=== PATIENT | female | born 1955 | race Caucasian/White ===

== ENCOUNTER → 2016-06-02 | Outpatient (CLI) | payer BC ==
[2016-06-02 13:13] LABS: CHLORIDE,CL 105 mmol/L (98-110)
[2016-06-02 13:59] LABS: SODIUM,NA 136 mmol/L (136-146)
== END ==
LOC: MW.CHNEURO 12:27
PROVIDERS: ATTEND Psychiatry & Neurology Neuromuscular Medicine
DX: G31.84 Mild cognitive impairment of uncertain or unknown etiology (principal)
CPT/HCPCS: 36415; 80053; 82607; 84443; 85025

== ENCOUNTER → 2016-06-03 | Outpatient (CLI) | payer BC | END | disposition home or self-care (01) | LOC: MW.CHNEURO 07:31 | PROVIDERS: ATTEND Psychiatry & Neurology Neuromuscular Medicine | DX: G31.84 Mild cognitive impairment of uncertain or unknown etiology (principal) | CPT/HCPCS: 36415; 83921 ==

== ENCOUNTER → 2016-06-05 | Outpatient (CLI) | payer BC ==
--- NOTE | 2016-06-05 16:14 | MR ---
EXAMINATION: MRI of the brain with and without contrast. TECHNIQUE: Multiplanar and multisequence imaging of the brain without and following the administrati on of 17 mL of MultiHance. HISTORY: Cognitive impairment. FINDINGS: Cerebral hemispheres and the deep nuclei are without hemorrhage, mass, edema, enhancement or atrophy . Small nonspecific multifocal periventricular and subcortical white matter FLAIR intensities are n oted. No extraaxial collections or hemorrhage. The ventricular system is of normal size and config uration without hydrocephalus. No abnormal diffusion restriction. Brainstem and cerebellum are without hemorrhage, mass, edema, gliosis, enhancement or atrophy. The carotid basilar artery flow voids are intact. The otomastoid airspaces are clear. No internal edy tory canal or cerebellopontine angle masses or enhancement. Paranasal sinuses are clear. Globes, optic nerves, orbital apices, optic chiasm, optic tracts, and visual cortices are unremarkable. Pituitary and sella turcica are unremarkable. No meningeal enhancement. The craniocervical junctio n is unremarkable. No siderosis or evidence of vascular malformation. The calvarium is intact. IMPRESSION: 1. Multiple nonspecific periventricular and subcortical white matter FLAIR signal intensities. These likely represent small vessel ischemic changes, related clinically. 2. Otherwise no acute intracranial findings.
== END ==
LOC: MW.MRI 10:13
PROVIDERS: ATTEND Psychiatry & Neurology Neuromuscular Medicine
DX: G31.84 Mild cognitive impairment of uncertain or unknown etiology (principal)
CPT/HCPCS: 70553; 70553-26

== ENCOUNTER → 2016-06-08 | Outpatient (CLI) | payer BC ==
[2016-06-08 12:49] LABS: CHLORIDE,CL 104 mmol/L (98-110); SODIUM,NA 139 mmol/L (136-146)
--- NOTE | 2016-06-10 11:53 | CR ---
EXAM DATE: 06/08/16 PATIENT'S AGE: 60 Patient: FACUNDO LUEVANO Facility: [place], [place] Site . Site : 1955 Study: XRay Extremity [id number] 2:16:51 PM Ordering Physician: Salvatore Monroy Final Report: HISTORY: Right hip pain. Findings: AP and frogleg views of the right hip demonstrates maintenance of the right hip joint space. No spurring is seen. No subchondral abnormality, fracture or dislocation is seen. Right-sided pelvic phleboliths are present. Impression: No bony abnormality within the right hip. Dictated by Jyoti Grey MD @ Jun 09 2016 10:16PM (Electronic Signature) Report Signed by Proxy and Original Signed Document filed in the Medical Record. MTDD
== END ==
LOC: MW.CHFP 12:08
PROVIDERS: ATTEND Nurse Practitioner Family
DX: M25.551 Pain in right hip (principal); E11.9 Type 2 diabetes mellitus without complications; Z79.4 Long term (current) use of insulin
CPT/HCPCS: 36415; 73502-26-RT; 73502-RT; 80053; 80061; 83036

== ENCOUNTER 2017-09-05 04:00 | Emergency (ER) | payer BC ==
--- NOTE | 2017-09-05 04:16 | EDM.PDOC ---
ED HPI GENERAL MEDICAL PROBLEM - General Stated Complaint: BLADDER INFECTION Time Seen by Provider: 09/05/17 04:15 Source of Information: Reports: Patient History Limitations: Reports: No Limitations - History of Present Illness INITIAL COMMENTS - FREE TEXT/NARRATIVE: HISTORY AND PHYSICAL: History of present illness: 61-year-old female presenting to the emergency department chief complaint of dysuria 1 day. Patient states that yesterday she began to have some dysuria as well as urgency. She suspects this is a urinary tract infection and has had similar in the past. Does state that she just finished a course of Augmentin for bronchitis /sinusitis/otitis media this last Wednesday. She denies any associated fever, chills, nausea, vomiting, flank pain, history of kidney stones, abdominal pain, or other signs of systemic infection. She currently denies any chest pain, palpitations, shortness of breath, syncopal episodes, or focal neurologic deficits. Review of systems: As per history of present illness and below otherwise all systems reviewed and negative. Past medical history: As per history of present illness and as reviewed below otherwise noncontributory. Surgical history: As per history of present illness and as reviewed below otherwise noncontributory. Social history: No reported history of drug or alcohol abuse. Family history: As per history of present illness and as reviewed below otherwise noncontributory. Physical exam: HEENT: Atraumatic, normocephalic, pupils reactive, negative for conjunctival pallor or scleral icterus, mucous membranes moist, throat clear, neck supple, nontender, trachea midline. Lungs: Clear to auscultation, breath sounds equal bilaterally, chest nontender. Heart: S1S2, regular, negative for clicks, rubs, or JVD. Abdomen: Soft, nondistended, nontender. Negative for masses or hepatosplenomegaly. Negative for costovertebral tenderness. Pelvis: Stable nontender. Genitourinary: Deferred. Rectal: Deferred. Extremities: Atraumatic, negative for cords or calf pain. Neurovascular unremarkable. Neuro: Awake, alert, oriented. Cranial nerves II through XII unremarkable. Cerebellum unremarkable. Motor and sensory unremarkable throughout. Exam nonfocal. Diagnostics: UA/UC Therapeutics: Ciprofloxacin 500 mg by mouth twice a day Impression: Acute cystitis Plan: Urinalysis was positive for acute cystitis. Patient was given 1 dose of ciprofloxacin as well as a prescription for ciprofloxacin 500 mg by mouth twice a day. I did use Cipro secondary to the patient's recent use of Augmentin. She is going to follow-up with her primary care provider early next week and I also instructed her to return to emergency department if she had any new or worsening symptoms. Definitive disposition and diagnosis as appropriate pending reevaluation and review of above. lower abdomen Pain Score (Numeric/FACES): 4 - Related Data Allergies Allergy/AdvReac Type Severity Reaction Status Date / Time metronidazole Allergy Hives Verified 09/05/17 04:28 Sulfa (Sulfonamide Allergy Hives Verified 09/05/17 04:28 Antibiotics) Home Meds: Home Meds Aspirin [Divina Chewable Aspirin] 81 mg PO DAILY 10/28/13 [History] Gemfibrozil 600 mg PO BIDMEALS 10/28/13 [History] Sargeant Carbonate [Sargeant Carbonate ER] 150 mg PO TID 10/28/13 [History] Propranolol [Inderal LA] 160 mg PO BEDTIME 10/28/13 [History] QUEtiapine [SEROquel] 300 mg PO BEDTIME 10/28/13 [History] Levothyroxine 112 mcg PO ACBREAKFAST 05/18/14 [History] Losartan [Cozaar] 100 mg PO BEDTIME 05/21/14 [History] Rosuvastatin [Crestor] 10 mg PO BEDTIME 05/21/14 [History] buPROPion [Wellbutrin XL] 150 mg PO DAILY 05/21/14 [History] Methylphenidate HCl [Ritalin] 20 mg PO BID 12/07/14 [History] Subcutaneous Insulin Pump [Insulin Pump] 1 dose SQ ASDIRECTED 12/07/14 [History] Desvenlafaxine Succinate [Pristiq ER] 100 mg PO DAILY 10/15/15 [History] Methylphenidate HCl [Ritalin LA] 20 mg PO BID 10/15/15 [History] Vilazodone [Viibryd] 20 mg PO DAILY 10/15/15 [History] Amitriptyline [Elavil] 1 tab PO DAILY 09/05/17 [History] Gabapentin [Neurontin] 1 cap PO TID 09/05/17 [History] cloNIDine [Catapres] 1 tab PO BID 09/05/17 [History] Past Medical History Cardiovascular History: Reports: High Cholesterol, Hypertension Other Cardiovascular History: Hypertriglyceridemia Other Gastrointestinal History: Colitis, Elevated liver enzymes Genitourinary History: Reports: UTI, Recurrent Other Genitourinary History: Chronic UTI's in recent past hx: Now been clear for a year 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 History: Laproscopy Musculoskeletal History: Reports: Other (See Below) Other Musculoskeletal History: hx: fracturing couple toes Neurological History: Reports: None Psychiatric History: Reports: ADD, Depression Endocrine/Metabolic History: Reports: Diabetes, Type II, Hypothyroidism Other Endocrine/Metabolic History: Hypothyroidism, Insulin dependent diabetes- Insulin Pump - Infectious Disease History Infectious Disease History: Reports: Chicken Pox, Mumps, Shingles - Past Surgical History HEENT Surgical History: Reports: Tonsillectomy GI Surgical History: Reports: Cholecystectomy Social & Family History - Family History Family Medical History: Noncontributory ED ROS GENERAL - Review of Systems Review Of Systems: ROS reveals no pertinent complaints other than HPI. ED EXAM, GENERAL - Physical Exam Exam: See Below Course - Vital Signs Last Recorded V/S: Last Vital Signs Temp 97 F 09/05/17 04:00 Pulse 73 09/05/17 04:00 Resp 18 09/05/17 04:00 BP 145/54 H 09/05/17 04:00 Pulse Ox 95 09/05/17 04:00 - Orders/Labs/Meds Orders: Active Orders 24 hr Category Date Time Status CULTURE URINE [RM] Stat Lab 09/05/17 04:25 Received UA W/MICROSCOPIC [URIN] Stat Lab 09/05/17 04:25 Ordered Labs: Laboratory Tests 09/05/17 Range/Units 04:25 Urine Color YELLOW Urine Appearance HAZY Urine pH 6.0 (5.0-8.0) Ur Specific [place] 1.010 (1.001-1.035) Urine Protein 100 (NEGATIVE) mg/dL Urine Glucose (UA) >=1000 (NEGATIVE) mg/dL Urine Ketones NEGATIVE (NEGATIVE) mg/dL Urine Occult Blood LARGE H (NEGATIVE) Urine Nitrite POSITIVE H (NEGATIVE) Urine Bilirubin NEGATIVE (NEGATIVE) Urine Urobilinogen 2.0 H (<2.0) EU/dL Ur Leukocyte Esterase SMALL (NEGATIVE) Urine RBC 15-20 (0-2/HPF) Urine WBC TO NUMEROUS TO COUNT H (0-5/HPF) Ur Epithelial Cells FEW (NONE-FEW) Urine Bacteria 2+ H (NEGATIVE) Meds: Medications Discontinued Medications Generic Name Dose Route Start Last Admin Trade Name Ruben PRN Reason Stop Dose Admin Ciprofloxacin 500 mg 09/05/17 05:37 Ciprofloxacin Hcl PO 09/05/17 05:38 ONETIME ONE Departure - Departure Time of Disposition: 05:55 Disposition: Home, Self-Care 01 Condition: Good Clinical Impression: Acute cystitis Qualifiers: Hematuria presence: without hematuria Qualified Code(s): N30.00 - Acute cystitis without hematuria - Discharge Information Additional Instructions: My general discharge The following information is given to patients seen in the emergency department who are being discharged to home. This information is to outline your options for follow-up care. We provide all patients seen in our emergency department with a follow-up referral. The need for follow-up, as well as the timing and circumstances, are variable depending upon the specifics of your emergency department visit. If you don't have a primary care physician on staff, we will provide you with a referral. We always advise you to contact your personal physician following an emergency department visit to inform them of the circumstance of the visit and for follow-up with them and/or the need for any referrals to a consulting specialist. The emergency department will also refer you to a specialist when appropriate. This referral assures that you have the opportunity for follow-up care with a specialist. All of these measure are taken in an effort to provide you with optimal care, which includes your follow-up. Under all circumstances we always encourage you to contact your private physician who remains a resource for coordinating your care. When calling for follow-up care, please make the office aware that this follow-up is from your recent emergency room visit. If for any reason you are refused follow-up, please contact the [facility] Emergency Department at and asked to speak to the emergency department charge nurse. [facility] [address] [place] [phone] Please follow-up with a primary care provider as we discussed. Take antibiotics as prescribed. He should watch out for symptoms and side effects of medication that we discussed. Return emergency department if any new or worsening symptoms. - My Orders Last 24 Hours: My Active Orders 09/05/17 04:25 CULTURE URINE [RM] Stat UA W/MICROSCOPIC [URIN] Stat - Assessment/Plan Last 24 Hours: My Active Orders 09/05/17 04:25 CULTURE URINE [RM] Stat UA W/MICROSCOPIC [URIN] Stat
[2017-09-05] MEDS ORDERED: Ciprofloxacin 500 MG Tab PO ONE (05:37)
[2017-09-05 05:56] VITALS: BP 110/54
== END 2017-09-05 06:05 | disposition home or self-care (01) ==
LOC: MW.ED 04:00
DX: N30.00 Acute cystitis without hematuria (principal); I10 Essential (primary) hypertension; E11.9 Type 2 diabetes mellitus without complications; Z79.899 Other long term (current) drug therapy; Z79.82 Long term (current) use of aspirin; Z88.8 Allergy status to other drugs, medicaments and biological substances; Z88.2 Allergy status to sulfonamides
CPT/HCPCS: 81001; 87086; 87088; 87186; 99283; A9270

== ENCOUNTER 2018-04-29 09:50 | Emergency (ER) | payer BC ==
[2018-04-29] MEDS ORDERED: Ondansetron 4 MG/2 ML SDV IVPUSH ONE (10:16)
[2018-04-29] MEDS ORDERED: Sodium Chloride 0.9% 10 ML SDV IV STA (10:16)
[2018-04-29] MEDS ORDERED: Ondansetron 4 MG/2 ML SDV ONE (10:17)
[2018-04-29] MEDS ORDERED: Sodium Chloride 0.9% 10 ML Syringe FLUSH PRN (10:18)
[2018-04-29] MEDS ORDERED: Sodium Chloride 0.9% 2.5 ML Syringe FLUSH PRN (10:18)
--- NOTE | 2018-04-29 10:40 | EDM.PDOC ---
ED HPI GENERAL MEDICAL PROBLEM - General Chief Complaint: Abdominal Pain Stated Complaint: AMB Time Seen by Provider: 04/29/18 10:17 Source of Information: Reports: Patient History Limitations: Reports: No Limitations - History of Present Illness INITIAL COMMENTS - FREE TEXT/NARRATIVE: History of present illness: []Started having right sided upper abdominal pain last night at 1 AM with frequent nonbloody emesis and mild shortness of breath. She woke up with severe chills alternating with sweats. Patient denies any diarrhea or difficulty urinating. She has a history of UTIs and states this does not feel like one. Review of systems: As per history of present illness and below otherwise all systems reviewed and negative. Past medical history: As per history of present illness and as reviewed below otherwise noncontributory. Surgical history: As per history of present illness and as reviewed below otherwise noncontributory. Social history: No reported history of drug or alcohol abuse. Family history: As per history of present illness and as reviewed below otherwise noncontributory. Physical exam: General: Well developed, well nourished in NAD HEENT: Atraumatic, normocephalic, pupils reactive, negative for conjunctival pallor or scleral icterus, mucous membranes moist, throat clear, neck supple, nontender, trachea midline. Lungs: Clear to auscultation, breath sounds equal bilaterally, chest nontender. Heart: S1S2, regular, negative for clicks, rubs, or JVD. Abdomen: NABS, Soft, nondistended, nontender. Negative for masses or hepatosplenomegaly. Negative for costovertebral tenderness. Pelvis: Stable nontender. Genitourinary: Deferred. Rectal: Deferred. Extremities: Atraumatic, negative for cords or calf pain. Neurovascular unremarkable. Neuro: Awake, alert, oriented. Cranial nerves II through XII unremarkable. Cerebellum unremarkable. Motor and sensory unremarkable throughout. Exam nonfocal. Skin:warm and dry Diagnostics: Blood cultures, CBC, CMP, UA, lactic acid Therapeutics: Zofran, ceftriaxone, Toradol ED Course: Stable Impression: UTI Prescriptions: Nitrofurantoin Plan: Follow up with primary care Definitive disposition and diagnosis as appropriate pending reevaluation and review of above. Right Abdominal Pain Score (Numeric/FACES): 7 - Related Data Allergies Allergy/AdvReac Type Severity Reaction Status Date / Time codeine Allergy skin crawls Verified 04/29/18 10:03 metronidazole Allergy Hives Verified 04/29/18 10:03 Sulfa (Sulfonamide Allergy Hives Verified 04/29/18 10:03 Antibiotics) Home Meds: Home Meds Aspirin [Divina Chewable Aspirin] 81 mg PO DAILY 10/28/13 [History] Gemfibrozil 600 mg PO BIDMEALS 10/28/13 [History] Kelly Carbonate [Kelly Carbonate ER] 3 tab PO DAILY 10/28/13 [History] Propranolol [Inderal LA] 160 mg PO BEDTIME 10/28/13 [History] QUEtiapine [SEROquel] 300 mg PO BEDTIME 10/28/13 [History] Levothyroxine 112 mcg PO ACBREAKFAST 05/18/14 [History] Losartan [Cozaar] 100 mg PO BEDTIME 05/21/14 [History] Methylphenidate HCl [Ritalin LA] 2 tab PO DAILY 10/15/15 [History] Amitriptyline [Elavil] 1 tab PO BEDTIME 09/05/17 [History] Gabapentin [Neurontin] 1 cap PO TID 09/05/17 [History] cloNIDine [Catapres] 2 tab PO BEDTIME 09/05/17 [History] Fiasp 200 units SUBCUT ASDIRECTED 01/19/18 [History] Ozempic 0.25 mg SUBCUT WEEKLY 01/19/18 [History] rOPINIRole HCl [Requip] 1 mg PO BEDTIME 01/19/18 [History] Nitrofurantoin Macrocrystal [Macrodantin] 100 mg PO BID #14 capsule 04/29/18 [Rx ] Past Medical History HEENT History: Reports: Other (See Below) Other HEENT History: wears glasses Cardiovascular History: Reports: High Cholesterol, Hypertension Other Cardiovascular History: Hypertriglyceridemia Respiratory History: Reports: None Gastrointestinal History: Reports: GERD, Irritable Bowel Syndrome, Other (See Below) Other Gastrointestinal History: Colitis, Elevated liver enzymes Genitourinary History: Reports: UTI, Recurrent Other Genitourinary History: Chronic UTI's in recent past hx: Now been clear for a year 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 Musculoskeletal History: Reports: Other (See Below) Other Musculoskeletal History: hx: fracturing couple toes Neurological History: Reports: Neuropathy, Peripheral, Other (See Below) Other Neuro History: dementia Psychiatric History: Reports: ADHD, Anxiety, Depression, PTSD, Suicide Attempt Endocrine/Metabolic History: Reports: Diabetes, Type II, Hypothyroidism Other Endocrine/Metabolic History: Hypothyroidism, Insulin dependent diabetes- Insulin Pump Hematologic History: Reports: None Immunologic History: Reports: None Oncologic (Cancer) History: Reports: None Dermatologic History: Reports: None - Infectious Disease History Infectious Disease History: Reports: Chicken Pox, Mumps, TB - Past Surgical History Head Surgeries/Procedures: Reports: None HEENT Surgical History: Reports: Tonsillectomy GI Surgical History: Reports: Cholecystectomy Social & Family History - Family History Family Medical History: Noncontributory - Tobacco Use Smoking Status *Q: Never Smoker - Caffeine Use Caffeine Use: Reports: None - Recreational Drug Use Recreational Drug Use: No ED ROS GENERAL - Review of Systems Review Of Systems: ROS reveals no pertinent complaints other than HPI. ED EXAM, GI/ABD - Physical Exam Exam: See Below (See history of present illness) Course - Vital Signs Last Recorded V/S: Last Vital Signs Temp 100 F 04/29/18 10:07 Pulse 108 H 04/29/18 10:07 Resp 20 04/29/18 10:07 BP 163/68 H 04/29/18 10:07 Pulse Ox 94 L 04/29/18 10:07 - Orders/Labs/Meds Orders: Active Orders 24 hr Category Date Time Status EKG 12 Lead [EKG Documentation Completion] [RC] STAT Care 04/29/18 11:02 Active CULTURE BLOOD [BC] Stat Lab 04/29/18 11:33 Received CULTURE BLOOD [BC] Stat Lab 04/29/18 11:42 Received CULTURE URINE [RM] Routine Lab 04/29/18 11:06 Received Sodium Chloride 0.9% [Saline Flush] Med 04/29/18 10:18 Active 10 ml FLUSH ASDIRECTED PRN Sodium Chloride 0.9% [Saline Flush] Med 04/29/18 10:18 Active 2.5 ml FLUSH ASDIRECTED PRN cefTRIAXone [Rocephin in Dextrose,Iso-Osm 1 GM/50 ML] 1 Med 04/29/18 11:55 Active gm Premix Bag 1 bag IV ONETIME Blood Culture x2 Reflex Set [OM.PC] Stat Oth 04/29/18 11:25 Ordered Saline Lock Insert [OM.PC] Stat Oth 04/29/18 10:18 Ordered Medication Orders Ceftriaxone Sodium/Dextrose 1 (gm/ Premix) 50 mls @ 100 mls/hr IV ONETIME ONE Stop: 04/29/18 12:24 Last Admin: 04/29/18 12:12 Dose: 100 mls/hr Sodium Chloride (Saline Flush) 10 ml FLUSH ASDIRECTED PRN PRN Reason: Keep Vein Open Sodium Chloride (Saline Flush) 2.5 ml FLUSH ASDIRECTED PRN PRN Reason: Keep Vein Open Labs: Laboratory Tests 04/29/18 04/29/18 04/29/18 Range/Units 10:08 10:08 11:06 WBC 10.15 (4.0-11.0) K/uL RBC 4.60 (4.30-5.90) M/uL Hgb 13.5 (12.0-16.0) g/dL Hct 39.9 (36.0-46.0) % MCV 86.7 (80.0-98.0) fL MCH 29.3 (27.0-32.0) pg MCHC 33.8 (31.0-37.0) g/dL RDW Std Deviation 45.4 (28.0-62.0) fl RDW Coeff of Bailey 15 (11.0-15.0) % Plt Count 167 (150-400) K/uL MPV 10.00 (7.40-12.00) fL Neut % (Auto) 90.2 H (48.0-80.0) % Lymph % (Auto) 6.3 L (16.0-40.0) % [place] % (Auto) 3.2 (0.0-15.0) % Eos % (Auto) 0.1 (0.0-7.0) % Baso % (Auto) 0.2 (0.0-1.5) % Neut # (Auto) 9.2 H (1.4-5.7) K/uL Lymph # (Auto) 0.6 (0.6-2.4) K/uL [place] # (Auto) 0.3 (0.0-0.8) K/uL Eos # (Auto) 0.0 (0.0-0.7) K/uL Baso # (Auto) 0.0 (0.0-0.1) K/uL Nucleated RBC % 0.0 /100WBC Nucleated RBCs # 0 K/uL Lactate (0.20-2.00) mmol/L Sodium 137 (136-145) mmol/L Potassium 4.3 (3.5-5.1) mmol/L Chloride 102 (98-107) mmol/L Carbon Dioxide 15.8 L (21.0-32.0) mmol/L BUN 25 H (7.0-18.0) mg/dL Creatinine 1.9 H (0.6-1.0) mg/dL Est Cr Clr Drug Dosing 28.74 mL/min Estimated GFR (MDRD) 26.8 ml/min Glucose 387 H (74-106) mg/dL Calcium 9.4 (8.5-10.1) mg/dL Total Bilirubin 0.4 (0.2-1.0) mg/dL AST 19 (15-37) IU/L ALT 36 (14-63) IU/L Alkaline Phosphatase 60 (46-116) U/L Total Protein 7.8 (6.4-8.2) g/dL Albumin 3.7 (3.4-5.0) g/dL Globulin 4.1 H (2.6-4.0) g/dL Albumin/Globulin Ratio 0.9 (0.9-1.6) Urine Color YELLOW Urine Appearance CLEAR Urine pH 6.0 (5.0-8.0) Ur Specific [place] 1.015 (1.001-1.035) Urine Protein NEGATIVE (NEGATIVE) mg/dL Urine Glucose (UA) 500 H (NEGATIVE) mg/dL Urine Ketones NEGATIVE (NEGATIVE) mg/dL Urine Occult Blood SMALL H (NEGATIVE) Urine Nitrite POSITIVE H (NEGATIVE) Urine Bilirubin NEGATIVE (NEGATIVE) Urine Urobilinogen 0.2 (<2.0) EU/dL Ur Leukocyte Esterase NEGATIVE (NEGATIVE) Urine RBC 1-2 (0-2/HPF) Urine WBC 0-1 (0-5/HPF) Ur Epithelial Cells MODERATE (NONE-FEW) Urine Bacteria RARE (NEGATIVE) 04/29/18 Range/Units 11:33 WBC (4.0-11.0) K/uL RBC (4.30-5.90) M/uL Hgb (12.0-16.0) g/dL Hct (36.0-46.0) % MCV (80.0-98.0) fL MCH (27.0-32.0) pg MCHC (31.0-37.0) g/dL RDW Std Deviation (28.0-62.0) fl RDW Coeff of Bailey (11.0-15.0) % Plt Count (150-400) K/uL MPV (7.40-12.00) fL Neut % (Auto) (48.0-80.0) % Lymph % (Auto) (16.0-40.0) % [place] % (Auto) (0.0-15.0) % Eos % (Auto) (0.0-7.0) % Baso % (Auto) (0.0-1.5) % Neut # (Auto) (1.4-5.7) K/uL Lymph # (Auto) (0.6-2.4) K/uL [place] # (Auto) (0.0-0.8) K/uL Eos # (Auto) (0.0-0.7) K/uL Baso # (Auto) (0.0-0.1) K/uL Nucleated RBC % /100WBC Nucleated RBCs # K/uL Lactate 3.6 H (0.20-2.00) mmol/L Sodium (136-145) mmol/L Potassium (3.5-5.1) mmol/L Chloride (98-107) mmol/L Carbon Dioxide (21.0-32.0) mmol/L BUN (7.0-18.0) mg/dL Creatinine (0.6-1.0) mg/dL Est Cr Clr Drug Dosing mL/min Estimated GFR (MDRD) ml/min Glucose (74-106) mg/dL Calcium (8.5-10.1) mg/dL Total Bilirubin (0.2-1.0) mg/dL AST (15-37) IU/L ALT (14-63) IU/L Alkaline Phosphatase (46-116) U/L Total Protein (6.4-8.2) g/dL Albumin (3.4-5.0) g/dL Globulin (2.6-4.0) g/dL Albumin/Globulin Ratio (0.9-1.6) Urine Color Urine Appearance Urine pH (5.0-8.0) Ur Specific [place] (1.001-1.035) Urine Protein (NEGATIVE) mg/dL Urine Glucose (UA) (NEGATIVE) mg/dL Urine Ketones (NEGATIVE) mg/dL Urine Occult Blood (NEGATIVE) Urine Nitrite (NEGATIVE) Urine Bilirubin (NEGATIVE) Urine Urobilinogen (<2.0) EU/dL Ur Leukocyte Esterase (NEGATIVE) Urine RBC (0-2/HPF) Urine WBC (0-5/HPF) Ur Epithelial Cells (NONE-FEW) Urine Bacteria (NEGATIVE) Meds: Medications Generic Name Dose Route Start Last Admin Trade Name Freq PRN Reason Stop Dose Admin Ceftriaxone Sodium/Dextrose 1 50 mls @ 100 mls/hr 04/29/18 11:55 04/29/18 12: 12 gm/ Premix IV 04/29/18 12:24 100 mls/hr ONETIME ONE Administration Sodium Chloride 10 ml 04/29/18 10:18 Saline Flush FLUSH ASDIRECTED PRN Keep Vein Open Sodium Chloride 2.5 ml 04/29/18 10:18 Saline Flush FLUSH ASDIRECTED PRN Keep Vein Open Discontinued Medications Generic Name Dose Route Start Last Admin Trade Name Freq PRN Reason Stop Dose Admin Ketorolac Tromethamine 30 mg 04/29/18 10:56 04/29/18 11:00 Toradol IVPUSH 04/29/18 10:57 30 mg ONETIME ONE Administration Ondansetron HCl 4 mg 04/29/18 10:16 04/29/18 10:23 Zofran IVPUSH 04/29/18 10:17 4 mg ONETIME ONE Administration Ondansetron HCl Confirm 04/29/18 10:17 04/29/18 10:49 Zofran Administered 04/29/18 10:18 Not Given Dose 4 mg .ROUTE .STK-MED ONE Sodium Chloride 1,000 ml 04/29/18 10:16 04/29/18 10:23 Normal Saline IV 04/29/18 10:17 1,000 ml NOW STA Administration Departure - Departure Time of Disposition: 12:40 Disposition: Home, Self-Care 01 Condition: Good Clinical Impression: UTI (urinary tract infection) Qualifiers: Urinary tract infection type: acute cystitis Hematuria presence: with hematuria Qualified Code(s): N30.01 - Acute cystitis with hematuria - Discharge Information *PRESCRIPTION DRUG MONITORING PROGRAM REVIEWED*: Not Applicable *COPY OF PRESCRIPTION DRUG MONITORING REPORT IN PATIENT SHANIQUE: Not Applicable Prescriptions: Nitrofurantoin Macrocrystal [Macrodantin] 100 mg PO BID #14 capsule Referrals: PCP,Unknown [Primary Care Provider] - Forms: ED Department Discharge Additional Instructions: The following information is given to patients seen in the emergency department who are being discharged to home. This information is to outline your options for follow-up care. We provide all patients seen in our emergency department with a follow-up referral. The need for follow-up, as well as the timing and circumstances, are variable depending upon the specifics of your emergency department visit. If you don't have a primary care physician on staff, we will provide you with a referral. We always advise you to contact your personal physician following an emergency department visit to inform them of the circumstance of the visit and for follow-up with them and/or the need for any referrals to a consulting specialist. The emergency department will also refer you to a specialist when appropriate. This referral assures that you have the opportunity for follow-up care with a specialist. All of these measure are taken in an effort to provide you with optimal care, which includes your follow-up. Under all circumstances we always encourage you to contact your private physician who remains a resource for coordinating your care. When calling for follow-up care, please make the office aware that this follow-up is from your recent emergency room visit. If for any reason you are refused follow-up, please contact the [facility] Emergency Department at and asked to speak to the emergency department charge nurse. Take meds as directed, follow up with your primary care physician, return to ER if symptoms worsen or change. [facility] [address] [place] [id number] - My Orders Last 24 Hours: My Active Orders 04/29/18 10:18 Sodium Chloride 0.9% [Saline Flush] 10 ml FLUSH ASDIRECTED PRN Sodium Chloride 0.9% [Saline Flush] 2.5 ml FLUSH ASDIRECTED PRN Saline Lock Insert [OM.PC] Stat 04/29/18 11:02 EKG 12 Lead [EKG Documentation Completion] [RC] STAT 04/29/18 11:06 CULTURE URINE [RM] Routine 04/29/18 11:25 Blood Culture x2 Reflex Set [OM.PC] Stat 04/29/18 11:33 CULTURE BLOOD [BC] Stat 04/29/18 11:42 CULTURE BLOOD [BC] Stat 04/29/18 11:55 cefTRIAXone [Rocephin in Dextrose,Iso-Osm 1 GM/50 ML] 1 gm Premix Bag 1 bag IV ONETIME - Assessment/Plan Last 24 Hours: My Active Orders 04/29/18 10:18 Sodium Chloride 0.9% [Saline Flush] 10 ml FLUSH ASDIRECTED PRN Sodium Chloride 0.9% [Saline Flush] 2.5 ml FLUSH ASDIRECTED PRN Saline Lock Insert [OM.PC] Stat 04/29/18 11:02 EKG 12 Lead [EKG Documentation Completion] [RC] STAT 04/29/18 11:06 CULTURE URINE [RM] Routine 04/29/18 11:25 Blood Culture x2 Reflex Set [OM.PC] Stat 04/29/18 11:33 CULTURE BLOOD [BC] Stat 04/29/18 11:42 CULTURE BLOOD [BC] Stat 04/29/18 11:55 cefTRIAXone [Rocephin in Dextrose,Iso-Osm 1 GM/50 ML] 1 gm Premix Bag 1 bag IV ONETIME
[2018-04-29] MEDS ORDERED: Ketorolac 30 MG/ML SDV IVPUSH ONE (10:56)
[2018-04-29] MEDS ORDERED: cefTRIAXone 1 GM in Premix Bag 1 BAG IV ONE (11:55)
--- NOTE | 2018-04-29 11:59 | CR ---
EXAMINATION: Portable chest radiograph. HISTORY: Shortness of breath. FINDINGS: The trachea is midline. The cardiomediastinal silhouette is within normal limits. No pulmonary infiltrates, effusions or pneumothorax. Osseous structures appear unremarkable. IMPRESSION: No acute cardiopulmonary process.
[2018-04-29 13:00] VITALS: BP 95/46
== END 2018-04-29 12:55 | disposition home or self-care (01) ==
LOC: MW.ED 09:50
DX: N30.01 Acute cystitis with hematuria (principal); I10 Essential (primary) hypertension; E78.00 Pure hypercholesterolemia, unspecified; K21.9 Gastro-esophageal reflux disease without esophagitis; F41.9 Anxiety disorder, unspecified; F32.9 Major depressive disorder, single episode, unspecified; E11.9 Type 2 diabetes mellitus without complications; Z88.5 Allergy status to narcotic agent; Z79.82 Long term (current) use of aspirin; Z79.899 Other long term (current) drug therapy
CPT/HCPCS: 36415; 71045; 80053; 81001; 83605; 85025; 87040; 87086; 87088; 87186; 93005; 96361; 96365; 96375; 99284; J0696; J1885; J2405

== ENCOUNTER 2018-05-01 19:23 | Emergency (ER) | payer BC ==
--- NOTE | 2018-05-01 19:51 | EDM.PDOC ---
ED HPI GENERAL MEDICAL PROBLEM - General Chief Complaint: Genitourinary Problem Stated Complaint: KIDNEY INFECTION Time Seen by Provider: 05/01/18 19:45 Source of Information: Reports: Patient History Limitations: Reports: No Limitations - History of Present Illness INITIAL COMMENTS - FREE TEXT/NARRATIVE: HISTORY AND PHYSICAL: History of present illness: Patient is a 62-year-old female who presents to the emergency room with complaints of vomiting. She was diagnosed with a urinary tract infection on 04/29 and was placed on oral antibiotics. Today she has felt slightly nauseous and had an episode of vomiting. She is concerned that her bladder infection has not resolved it would like to be reevaluated. She denies any fever, chills, chest pain, shortness of breath or cough. She does have some right low abdominal pain that is mild into her side. Denies any diarrhea, constipation or blood in her stools. Review of systems: As per history of present illness and below otherwise all systems reviewed and negative. Past medical history: As per history of present illness and as reviewed below otherwise noncontributory. Surgical history: As per history of present illness and as reviewed below otherwise noncontributory. Social history: See social history for further information Family history: As per history of present illness and as reviewed below otherwise noncontributory. Physical exam: General: Well-developed and well-nourished 62-year-old female. Alert and oriented. Nontoxic appearing and in no acute HEENT: Atraumatic, normocephalic, pupils equal and reactive bilaterally, negative for conjunctival pallor or scleral icterus, mucous membranes moist, TMs normal bilaterally, throat clear, neck supple, nontender, trachea midline. No drooling or trismus noted. No meningeal signs. No hot potato voice noted. Lungs: Clear to auscultation, breath sounds equal bilaterally, chest nontender. Heart: S1S2, regular rate and rhythm without overt murmur Abdomen: Soft, nondistended, mild right mid-abdominal tenderness. No rebound tenderness. Negative for masses or hepatosplenomegaly. Negative for costovertebral tenderness. Pelvis: Stable nontender. Genitourinary: Deferred. Rectal: Deferred. Skin: Intact, warm, dry. No lesions or rashes noted. Extremities: Atraumatic, negative for cords or calf pain. Neurovascular unremarkable. Neuro: Awake, alert, oriented. Cranial nerves II through XII unremarkable. Cerebellum unremarkable. Motor and sensory unremarkable throughout. Exam nonfocal. Notes: Patient was seen in the emergency room on 04/29/18 for UTI. She received IV Rocephin and placed on nitrofurantoin by mouth. She did have lab work done at that time which showed BUN (25), Creat (1.9) UA (+Nitrates), UC (+E.Coli with is sensitive to listed drugs), Negative blood cultures. Lab work has improved from previous ER visit. We'll give her a prescription for Zofran and encouraged her to take small frequent sips of fluids at home and continue her oral antibiotic tomorrow. Supportive care measures were reviewed and discussed. Voices understanding and is agreeable to plan of care. Denies any further questions or concerns at this time. Diagnostics: CBC, CMP Therapeutics: Rocephin, Zofran Prescription: Zofran Impression: Nausea and vomiting History of UTI Plan: 1. Please take your oral antibiotic that you are have prescribed as directed. You may use the Zofran that has been prescribed as indicated for nausea management. 2. Small frequent sips of fluids to prevent dehydration. 3. Follow-up with your primary care provider as we discussed. Return to the ED as needed and as discussed. Definitive disposition and diagnosis as appropriate pending reevaluation and review of above. right flank Pain Score (Numeric/FACES): 2 - Related Data Allergies Allergy/AdvReac Type Severity Reaction Status Date / Time codeine Allergy skin crawls Verified 05/01/18 19:56 metronidazole Allergy Hives Verified 05/01/18 19:56 Sulfa (Sulfonamide Allergy Hives Verified 05/01/18 19:56 Antibiotics) Home Meds: Home Meds Aspirin [Divina Chewable Aspirin] 81 mg PO DAILY 10/28/13 [History] Gemfibrozil 600 mg PO BIDMEALS 10/28/13 [History] [place] Carbonate [[place] Carbonate ER] 3 tab PO DAILY 10/28/13 [History] Propranolol [Inderal LA] 160 mg PO BEDTIME 10/28/13 [History] QUEtiapine [SEROquel] 300 mg PO BEDTIME 10/28/13 [History] Levothyroxine 112 mcg PO ACBREAKFAST 05/18/14 [History] Losartan [Cozaar] 100 mg PO BEDTIME 05/21/14 [History] Methylphenidate HCl [Ritalin LA] 2 tab PO DAILY 10/15/15 [History] Amitriptyline [Elavil] 1 tab PO BEDTIME 09/05/17 [History] Gabapentin [Neurontin] 1 cap PO TID 09/05/17 [History] cloNIDine [Catapres] 2 tab PO BEDTIME 09/05/17 [History] Fiasp 200 units SUBCUT ASDIRECTED 01/19/18 [History] Ozempic 0.25 mg SUBCUT WEEKLY 01/19/18 [History] rOPINIRole HCl [Requip] 1 mg PO BEDTIME 01/19/18 [History] Nitrofurantoin Macrocrystal [Macrodantin] 100 mg PO BID #14 capsule 04/29/18 [Rx ] Past Medical History HEENT History: Reports: Other (See Below) Other HEENT History: wears glasses Cardiovascular History: Reports: High Cholesterol, Hypertension Other Cardiovascular History: Hypertriglyceridemia Respiratory History: Reports: None Gastrointestinal History: Reports: GERD, Irritable Bowel Syndrome, Other (See Below) Other Gastrointestinal History: Colitis, Elevated liver enzymes Genitourinary History: Reports: UTI, Recurrent Other Genitourinary History: Chronic UTI's in recent past hx: Now been clear for a year 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 Musculoskeletal History: Reports: Other (See Below) Other Musculoskeletal History: hx: fracturing couple toes Neurological History: Reports: Neuropathy, Peripheral, Other (See Below) Other Neuro History: dementia Psychiatric History: Reports: ADHD, Anxiety, Depression, PTSD, Suicide Attempt Endocrine/Metabolic History: Reports: Diabetes, Type II, Hypothyroidism Other Endocrine/Metabolic History: Hypothyroidism, Insulin dependent diabetes- Insulin Pump Hematologic History: Reports: None Immunologic History: Reports: None Oncologic (Cancer) History: Reports: None Dermatologic History: Reports: None - Infectious Disease History Infectious Disease History: Reports: Chicken Pox, Mumps, TB - Past Surgical History Head Surgeries/Procedures: Reports: None HEENT Surgical History: Reports: Tonsillectomy GI Surgical History: Reports: Cholecystectomy Social & Family History - Family History Family Medical History: Noncontributory - Caffeine Use Caffeine Use: Reports: None ED ROS GENERAL - Review of Systems Review Of Systems: ROS reveals no pertinent complaints other than HPI. ED EXAM, RENAL/ - Physical Exam Exam: See Below (See dictation) Course - Vital Signs Last Recorded V/S: Last Vital Signs Temp 97 F 05/01/18 19:45 Pulse 74 05/01/18 19:45 Resp 18 05/01/18 19:45 BP 133/50 L 05/01/18 19:45 Pulse Ox 95 05/01/18 19:45 - Orders/Labs/Meds Labs: Laboratory Tests 05/01/18 05/01/18 Range/Units 20:10 20:10 WBC 9.22 (4.0-11.0) K/uL RBC 4.15 L (4.30-5.90) M/uL Hgb 12.4 (12.0-16.0) g/dL Hct 36.1 (36.0-46.0) % MCV 87.0 (80.0-98.0) fL MCH 29.9 (27.0-32.0) pg MCHC 34.3 (31.0-37.0) g/dL RDW Std Deviation 46.2 (28.0-62.0) fl RDW Coeff of Bailey 15 (11.0-15.0) % Plt Count 122 L (150-400) K/uL MPV 10.40 (7.40-12.00) fL Neut % (Auto) 61.7 (48.0-80.0) % Lymph % (Auto) 31.2 (16.0-40.0) % Pettis % (Auto) 5.7 (0.0-15.0) % Eos % (Auto) 1.2 (0.0-7.0) % Baso % (Auto) 0.2 (0.0-1.5) % Neut # (Auto) 5.7 (1.4-5.7) K/uL Lymph # (Auto) 2.9 H (0.6-2.4) K/uL Pettis # (Auto) 0.5 (0.0-0.8) K/uL Eos # (Auto) 0.1 (0.0-0.7) K/uL Baso # (Auto) 0.0 (0.0-0.1) K/uL Nucleated RBC % 0.0 /100WBC Nucleated RBCs # 0 K/uL Sodium 138 (136-145) mmol/L Potassium 4.6 (3.5-5.1) mmol/L Chloride 103 (98-107) mmol/L Carbon Dioxide 21.3 (21.0-32.0) mmol/L BUN 27 H (7.0-18.0) mg/dL Creatinine 1.3 H (0.6-1.0) mg/dL Est Cr Clr Drug Dosing TNP Estimated GFR (MDRD) 41.5 ml/min Glucose 260 H (74-106) mg/dL Calcium 9.7 (8.5-10.1) mg/dL Total Bilirubin 0.5 (0.2-1.0) mg/dL AST 15 (15-37) IU/L ALT 22 (14-63) IU/L Alkaline Phosphatase 61 (46-116) U/L Total Protein 7.8 (6.4-8.2) g/dL Albumin 3.1 L (3.4-5.0) g/dL Globulin 4.7 H (2.6-4.0) g/dL Albumin/Globulin Ratio 0.7 L (0.9-1.6) Meds: Medications Discontinued Medications Generic Name Dose Route Start Last Admin Trade Name Thomasq PRN Reason Stop Dose Admin Ceftriaxone Sodium 1 gm 05/01/18 20:00 05/01/18 20:20 Rocephin IM 05/01/18 20:01 1 gm ONETIME ONE Administration Lidocaine HCl 2.1 ml 05/01/18 20:00 05/01/18 20:21 Xylocaine 1% INJECT 05/01/18 20:01 2.1 ml ONETIME ONE Administration Lidocaine HCl 5 ml 05/01/18 20:09 05/01/18 20:20 Xylocaine-Mpf 1% INJECT 05/01/18 20:10 5 ml ONETIME ONE Administration Ondansetron HCl 4 mg 05/01/18 19:58 05/01/18 20:20 Zofran Odt PO 05/01/18 19:59 4 mg ONETIME ONE Administration Departure - Departure Time of Disposition: 21:15 Disposition: Home, Self-Care 01 Clinical Impression: History of UTI Nausea and vomiting Qualifiers: Vomiting type: unspecified Vomiting Intractability: non-intractable Qualified Code(s): R11.2 - Nausea with vomiting, unspecified - Discharge Information Instructions: Nausea and Vomiting, Adult, [id number] Referrals: PCP,Unknown [Primary Care Provider] - Forms: ED Department Discharge Additional Instructions: The following information is given to patients seen in the emergency department who are being discharged to home. This information is to outline your options for follow-up care. We provide all patients seen in our emergency department with a follow-up referral. The need for follow-up, as well as the timing and circumstances, are variable depending upon the specifics of your emergency department visit. If you don't have a primary care physician on staff, we will provide you with a referral. We always advise you to contact your personal physician following an emergency department visit to inform them of the circumstance of the visit and for follow-up with them and/or the need for any referrals to a consulting specialist. The emergency department will also refer you to a specialist when appropriate. This referral assures that you have the opportunity for follow-up care with a specialist. All of these measure are taken in an effort to provide you with optimal care, which includes your follow-up. Under all circumstances we always encourage you to contact your private physician who remains a resource for coordinating your care. When calling for follow-up care, please make the office aware that this follow-up is from your recent emergency room visit. If for any reason you are refused follow-up, please contact the [facility] Emergency Department at and asked to speak to the emergency department charge nurse. [facility] [address] [place] [address] [place] [address] 1. Please take your oral antibiotic that you are have prescribed as directed. You may use the Zofran that has been prescribed as indicated for nausea management. 2. Small frequent sips of fluids to prevent dehydration. 3. Follow-up with your primary care provider as we discussed. Return to the ED as needed and as discussed.
[2018-05-01] MEDS ORDERED: Ondansetron 4 MG Tab.DIS PO ONE (19:58)
[2018-05-01] MEDS ORDERED: cefTRIAXone 1 GM Vial IM ONE (20:00)
[2018-05-01] MEDS ORDERED: Lidocaine 1% 20 ML MDV INJECT ONE (20:00)
[2018-05-01 21:10] LABS: CHLORIDE,CL 103 mmol/L (98-107); SODIUM,NA 138 mmol/L (136-145)
[2018-05-01 21:41] VITALS: BP 145/58
== END 2018-05-01 21:39 | disposition home or self-care (01) ==
LOC: MW.ED 19:23
DX: R11.2 Nausea with vomiting, unspecified (principal); I10 Essential (primary) hypertension; Z88.8 Allergy status to other drugs, medicaments and biological substances; Z88.2 Allergy status to sulfonamides; Z88.5 Allergy status to narcotic agent; Z79.899 Other long term (current) drug therapy; Z79.82 Long term (current) use of aspirin; Z87.440 Personal history of urinary (tract) infections
CPT/HCPCS: 36415; 80053; 85025; 96372; 99284; A9270; J0696; J2001

== ENCOUNTER 2018-10-31 20:11 | Emergency (ER) | payer BC ==
[2018-10-31 20:27] VITALS: PULSE 81
[2018-10-31] MEDS ORDERED: Ketorolac 60 MG/2 ML SDV IM ONE (20:30)
--- NOTE | 2018-10-31 20:30 | EDM.PDOC ---
ED HPI GENERAL MEDICAL PROBLEM - General Chief Complaint: Genitourinary Problem Stated Complaint: UTI Time Seen by Provider: 10/31/18 20:13 - History of Present Illness INITIAL COMMENTS - FREE TEXT/NARRATIVE: HISTORY AND PHYSICAL: History of present illness: The patient is a 62-year-old female who follows with Dr. Winston in the clinic and says that she has had 3 UTIs in succession and she is currently on doxycycline antibiotics which she has taken one tablet twice a day for 10 days and she's currently on one tablet once a day for 7 days. She says she has had urine cultures and her medications have been dosed pending those results. She says that she is here tonight because she is having severe burning when she urinates and after she passes the urine she is having no fever chills flank pain or abdominal pain. According to the computer she had a UTI in May and there was a culture performed on May 20 which had Escherichia coli and she also had a urine culture on August 25 which showed staph areas and on that occasion the patient was treated with nitrofurantoin which the culture was sensitive to. On October 04 the patient also had a urine culture which showed Citrobacter freundii and on the sensitivity list there is tetracycline but there is no doxycycline. The patient says she is going on vacation in a week or so when she wants to get this cleared up and because of the burning she came here for evaluation ;she is pushing her hydration and she has no other systemic complaints Review of systems: As per history of present illness and below otherwise all systems reviewed and negative. Past medical history: As per history of present illness and as reviewed below otherwise noncontributory. Surgical history: As per history of present illness and as reviewed below otherwise noncontributory. Social history: No reported history of drug or alcohol abuse. Family history: As per history of present illness and as reviewed below otherwise noncontributory. Physical exam: General: Well-developed well-nourished female who is nontoxic and vital signs are noted by me HEENT: Atraumatic, normocephalic, negative for conjunctival pallor or scleral icterus, mucous membranes moist, throat clear, neck supple, nontender, trachea midline. Lungs: Clear to auscultation, breath sounds equal bilaterally, chest nontender. Heart: S1S2, regular, rate and rhythm no overt murmurs Abdomen: Soft, nondistended, nontender. Negative for masses or hepatosplenomegaly. Negative for costovertebral tenderness. Pelvis: Stable nontender. Genitourinary: Deferred. Rectal: Deferred. Extremities: Atraumatic, negative for cords or calf pain. Neurovascular unremarkable. Neuro: Awake, alert, oriented. Cranial nerves II through XII unremarkable. Cerebellum unremarkable. Motor and sensory unremarkable throughout. Exam nonfocal. Diagnostics: UA with micro-urine culture Therapeutics: Toradol I discussed with the patient all of her prior culture results and that we would switch her antibiotic from doxycycline to Levaquin and I will also give her 2 days of Pyridium. I did discuss with the patient at length that she needs to follow-up in the clinic as she is getting these recurrent UTIs each with different bacteria and she may need more testing with urology to identify why this is occurring. Impression: Recurrent UTI Definitive disposition and diagnosis as appropriate pending reevaluation and review of above. - Related Data Allergies Allergy/AdvReac Type Severity Reaction Status Date / Time codeine Allergy skin crawls Verified 05/01/18 19:56 metronidazole Allergy Hives Verified 05/01/18 19:56 Sulfa (Sulfonamide Allergy Hives Verified 05/01/18 19:56 Antibiotics) sulfamethoxazole Allergy Hives Verified 10/31/18 20:28 [From Bactrim] trimethoprim [From Bactrim] Allergy Hives Verified 10/31/18 20:28 Home Meds: Home Meds Aspirin [Divina Chewable Aspirin] 81 mg PO DAILY 10/28/13 [History] Gemfibrozil 600 mg PO BIDMEALS 10/28/13 [History] [place] Carbonate [[place] Carbonate ER] 3 tab PO DAILY 10/28/13 [History] Propranolol [Inderal LA] 160 mg PO BEDTIME 10/28/13 [History] QUEtiapine [SEROquel] 300 mg PO BEDTIME 10/28/13 [History] Levothyroxine 112 mcg PO ACBREAKFAST 05/18/14 [History] Losartan [Cozaar] 100 mg PO BEDTIME 05/21/14 [History] Methylphenidate HCl [Ritalin LA] 2 tab PO DAILY 10/15/15 [History] Amitriptyline [Elavil] 1 tab PO BEDTIME 09/05/17 [History] Gabapentin [Neurontin] 1 cap PO TID 09/05/17 [History] Fiasp 200 units SUBCUT ASDIRECTED 01/19/18 [History] Ozempic 0.25 mg SUBCUT WEEKLY 01/19/18 [History] rOPINIRole HCl [Requip] 1 mg PO BEDTIME 01/19/18 [History] Past Medical History HEENT History: Reports: Other (See Below) Other HEENT History: wears glasses Cardiovascular History: Reports: High Cholesterol, Hypertension Other Cardiovascular History: Hypertriglyceridemia Respiratory History: Reports: None Gastrointestinal History: Reports: GERD, Irritable Bowel Syndrome, Other (See Below) Other Gastrointestinal History: Colitis, Elevated liver enzymes Genitourinary History: Reports: UTI, Recurrent Other Genitourinary History: Chronic UTI's in recent past hx: Now been clear for a year 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 Musculoskeletal History: Reports: Other (See Below) Other Musculoskeletal History: hx: fracturing couple toes Neurological History: Reports: Neuropathy, Peripheral, Other (See Below) Other Neuro History: dementia Psychiatric History: Reports: ADHD, Anxiety, Depression, PTSD, Suicide Attempt Endocrine/Metabolic History: Reports: Diabetes, Type II, Hypothyroidism Other Endocrine/Metabolic History: Hypothyroidism, Insulin dependent diabetes- Insulin Pump Hematologic History: Reports: None Immunologic History: Reports: None Oncologic (Cancer) History: Reports: None Dermatologic History: Reports: None - Infectious Disease History Infectious Disease History: Reports: Chicken Pox, Mumps, TB - Past Surgical History Head Surgeries/Procedures: Reports: None HEENT Surgical History: Reports: Tonsillectomy GI Surgical History: Reports: Cholecystectomy Social & Family History - Family History Family Medical History: Noncontributory - Caffeine Use Caffeine Use: Reports: None ED ROS GENERAL - Review of Systems Review Of Systems: ROS reveals no pertinent complaints other than HPI. ED EXAM, GENERAL - Physical Exam Exam: See Below (see Dictation) Course - Vital Signs Last Recorded V/S: Last Vital Signs Temp 36.2 C 10/31/18 20:25 Pulse 81 10/31/18 20:25 Resp 16 10/31/18 20:25 BP 147/70 H 10/31/18 20:25 Pulse Ox 99 10/31/18 20:25 - Orders/Labs/Meds Orders: Active Orders 24 hr Category Date Time Status CULTURE URINE [RM] Stat Lab 10/31/18 20:40 Received Labs: Laboratory Tests 10/31/18 Range/Units 20:40 Urine Color YELLOW Urine Appearance CLEAR Urine pH 6.0 (5.0-8.0) Ur Specific [place] 1.025 (1.001-1.035) Urine Protein NEGATIVE (NEGATIVE) mg/dL Urine Glucose (UA) 100 H (NEGATIVE) mg/dL Urine Ketones NEGATIVE (NEGATIVE) mg/dL Urine Occult Blood NEGATIVE (NEGATIVE) Urine Nitrite POSITIVE H (NEGATIVE) Urine Bilirubin MODERATE H (NEGATIVE) Urine Urobilinogen 0.2 (<2.0) EU/dL Ur Leukocyte Esterase TRACE H (NEGATIVE) Urine RBC 0-1 (0-2/HPF) Urine WBC 10-15 (0-5/HPF) Ur Epithelial Cells MANY (NONE-FEW) Urine Bacteria 2+ H (NEGATIVE) Meds: Medications Discontinued Medications Generic Name Dose Route Start Last Admin Trade Name Freq PRN Reason Stop Dose Admin Ketorolac Tromethamine 60 mg 10/31/18 20:30 10/31/18 20:41 Toradol IM 10/31/18 20:31 60 mg ONETIME ONE Administration Departure - Departure Time of Disposition: 21:09 Disposition: Home, Self-Care 01 Condition: Good Clinical Impression: Recurrent UTI - Discharge Information Referrals: Jennifer Winston MD [Primary Care Provider] - Forms: ED Department Discharge Additional Instructions: The following information is given to patients seen in the emergency department who are being discharged to home. This information is to outline your options for follow-up care. We provide all patients seen in our emergency department with a follow-up referral. The need for follow-up, as well as the timing and circumstances, are variable depending upon the specifics of your emergency department visit. If you don't have a primary care physician on staff, we will provide you with a referral. We always advise you to contact your personal physician following an emergency department visit to inform them of the circumstance of the visit and for follow-up with them and/or the need for any referrals to a consulting specialist. The emergency department will also refer you to a specialist when appropriate. This referral assures that you have the opportunity for followup care with a specialist. All of these measure are taken in an effort to provide you with optimal care, which includes your followup. Under all circumstances we always encourage you to contact your private physician who remains a resource for coordinating your care. When calling for followup care, please make the office aware that this follow-up is from your recent emergency room visit. If for any reason you are refused follow-up, please contact the emergency department at and ask to speak to the emergency department charge nurse. [facility]- [facility] Family [address] [address] Push hydration and take all medications as directed, Levaquin and Pyridium. Please stop the doxycycline that you're currently taking as it is not effective per today's urine results. You will be contacted if today's culture reveals a change in care plan. Please connect with your clinic provider or one of her associates for further care and management of these recurrent UTIs to ER as needed and as discussed - My Orders Last 24 Hours: My Active Orders 10/31/18 20:40 CULTURE URINE [RM] Stat - Assessment/Plan Last 24 Hours: My Active Orders 10/31/18 20:40 CULTURE URINE [RM] Stat
[2018-10-31 21:28] VITALS: BP 132/63
== END 2018-10-31 21:28 | disposition home or self-care (01) ==
LOC: MW.ED 20:11
DX: N39.0 Urinary tract infection, site not specified (principal); E11.9 Type 2 diabetes mellitus without complications; E03.9 Hypothyroidism, unspecified; I10 Essential (primary) hypertension; F32.9 Major depressive disorder, single episode, unspecified; F41.9 Anxiety disorder, unspecified; F90.9 Attention-deficit hyperactivity disorder, unspecified type; Z98.890 Other specified postprocedural states; Z90.49 Acquired absence of other specified parts of digestive tract; Z79.82 Long term (current) use of aspirin; Z79.899 Other long term (current) drug therapy; Z88.8 Allergy status to other drugs, medicaments and biological substances; Z88.2 Allergy status to sulfonamides; Z88.1 Allergy status to other antibiotic agents; Z88.5 Allergy status to narcotic agent
CPT/HCPCS: 81001; 87086; 96372; 99283; J1885; 87186

== ENCOUNTER 2022-05-10 00:10 | Observation (INO) | payer MEDICARE, BC ==
[2022-05-10] MEDS ORDERED: Ketorolac 30 MG/ML SDV IVPUSH ONE (00:20)
[2022-05-10 01:48] LABS: CARBON DIOXIDE,CO2 24.9 mmol/L (21.0-32.0); POTASSIUM,K 3.7 mmol/L (3.5-5.1)
[2022-05-10] MEDS ORDERED: Sodium Chloride 0.9% 1,000 ML IV ONE ×2 (02:09→08:36)
[2022-05-10] MEDS ORDERED: Insulin Regular, Human 100 Units/ML 10 ML Vial IVPUSH ONE (02:10)
[2022-05-10] MEDS ORDERED: cefTRIAXone 500 MG in Sodium Chloride 0.9% 50 ML IV ONE (03:10)
[2022-05-10] MEDS ORDERED: cefTRIAXone 1 GM Vial ONE (03:15)
[2022-05-10] MEDS ORDERED: Sodium Chloride 0.9% 50 ML ONE (03:17)
[2022-05-10] MEDS: cefTRIAXone 1 GM in Sodium Chloride 0.9% 50 ML IV ONE ×2 (03:20)
[2022-05-10] MEDS ORDERED: Sodium Chloride 0.9% 2.5 ML Syringe FLUSH PRN (03:58)
[2022-05-10] MEDS ORDERED: Sodium Chloride 0.9% 10 ML Syringe FLUSH PRN (03:58)
[2022-05-10] MEDS ORDERED: 50% Dextrose in Water 50 ML Syringe IVPUSH PRN (03:59)
[2022-05-10] MEDS ORDERED: Glucagon,Human Recombinant 1 MG Vial IM PRN (03:59)
[2022-05-10] MEDS ORDERED: Potassium Chloride 20 MEQ in Premix Bag 1 BAG IV ONE (04:50)
[2022-05-10] MEDS ORDERED: Sodium Chloride 0.9% 500 ML IV SCH (05:00)
[2022-05-10] MEDS ORDERED: Levothyroxine 100 MCG Vial IV SCH ×2 (05:30→06:00)
[2022-05-10] MEDS ORDERED: Hydrocortisone Sodium Succinate 100 MG/2 ML SDV ONE (05:49)
[2022-05-10] MEDS ORDERED: NS + KCl 20mEq/L 1,000 ML ONE (05:49)
[2022-05-10] MEDS ORDERED: Levothyroxine 50 MCG Tab ONE (05:49)
[2022-05-10 06:57] LABS: CARBON DIOXIDE,CO2 24.8 mmol/L (21.0-32.0); POTASSIUM,K 3.6 mmol/L (3.5-5.1)
[2022-05-10] MEDS ORDERED: Norepinephrine Bit/D5W Premix 250 ML IV SCH (07:30)
[2022-05-10] MEDS ORDERED: Insulin Aspart 100 Units/ML 3 ML Pen SUBCUT SCH ×2 (07:30→12:00)
[2022-05-10] MEDS ORDERED: Norepinephrine Bit/D5W Premix 250 ML ONE (07:41)
[2022-05-10] MEDS: Hydrocortisone Sodium Succinate 100 MG/2 ML SDV IV SCH ×4 (08:52→22:40)
[2022-05-10] MEDS: Insulin Aspart 100 Units/ML 3 ML Pen SUBCUT SCH ×3 (11:51→21:06)
[2022-05-10] MEDS: Lithium Carbonate 150 MG Capsule PO SCH ×2 (13:24→21:11)
[2022-05-10] MEDS: FLUoxetine 20 MG Cap PO SCH (13:29)
[2022-05-10] MEDS: NS + KCl 20mEq/L 1,000 ML IV SCH ×2 (14:15→22:36)
[2022-05-10] MEDS ORDERED: Gabapentin 100 MG Cap PO ONE (20:29)
[2022-05-10] MEDS: QUEtiapine 100 MG Tab PO SCH (20:53)
[2022-05-10] MEDS ORDERED: Insulin Aspart 100 Units/ML 3 ML Pen SUBCUT ONE (23:51)
[2022-05-11] MEDS: cefTRIAXone 1 GM in Sodium Chloride 0.9% 50 ML IV SCH (02:34)
[2022-05-11] MEDS ORDERED: Insulin Aspart 100 Units/ML 3 ML Pen SUBCUT ONE (02:43)
[2022-05-11] MEDS: Hydrocortisone Sodium Succinate 100 MG/2 ML SDV IV SCH (05:00)
[2022-05-11 06:33] LABS: CARBON DIOXIDE,CO2 24.3 mmol/L (21.0-32.0); POTASSIUM,K 4.1 mmol/L (3.5-5.1)
[2022-05-11] MEDS: NS + KCl 20mEq/L 1,000 ML IV SCH ×2 (07:17→16:17)
[2022-05-11 07:54] LABS: HEMOGLOBIN A1C 12.8 %
[2022-05-11] MEDS: Insulin Aspart 100 Units/ML 3 ML Pen SUBCUT SCH ×6 (07:59→21:09)
[2022-05-11] MEDS: Lithium Carbonate 150 MG Capsule PO SCH ×2 (08:00→21:11)
[2022-05-11] MEDS: FLUoxetine 20 MG Cap PO SCH (08:01)
[2022-05-11] MEDS ORDERED: Insulin Glargine,Hum.Rec.Anlog 100 UNIT/ML 3 ML Pen SUBCUT STA ×2 (10:21)
[2022-05-11] MEDS ORDERED: Glucagon,Human Recombinant 1 MG Vial IM PRN (10:24)
[2022-05-11] MEDS ORDERED: 50% Dextrose in Water 50 ML Syringe IVPUSH PRN (10:24)
[2022-05-11] MEDS ORDERED: Ibuprofen 400 MG Tab PO PRN (10:25)
[2022-05-11] MEDS: Gabapentin 100 MG Cap PO SCH ×2 (14:19→21:08)
[2022-05-11] MEDS: QUEtiapine 100 MG Tab PO SCH (21:08)
[2022-05-12] MEDS: NS + KCl 20mEq/L 1,000 ML IV SCH (00:26)
[2022-05-12] MEDS: cefTRIAXone 1 GM in Sodium Chloride 0.9% 50 ML IV SCH (02:31)
[2022-05-12] MEDS: Gabapentin 100 MG Cap PO SCH ×2 (06:41→14:47)
[2022-05-12] MEDS: Insulin Aspart 100 Units/ML 3 ML Pen SUBCUT SCH ×4 (07:50→11:56)
[2022-05-12] MEDS: FLUoxetine 20 MG Cap PO SCH (09:52)
[2022-05-12] MEDS: Lithium Carbonate 150 MG Capsule PO SCH (09:53)
[2022-05-12 11:29] VITALS: BP 150/70; PULSE 76
== END 2022-05-12 16:57 | disposition home or self-care (01) ==
LOC: MW.ED 00:10 → MW.MS 03:02 → MW.ICU 03:53 → MW.MS 21:03
PROVIDERS: ADMIT Internal Medicine; ATTEND Internal Medicine
DX: E86.0 Dehydration (principal); N30.00 Acute cystitis without hematuria; F32.A Depression, unspecified; R29.6 Repeated falls; E78.00 Pure hypercholesterolemia, unspecified; I10 Essential (primary) hypertension; K21.9 Gastro-esophageal reflux disease without esophagitis; E11.42 Type 2 diabetes mellitus with diabetic polyneuropathy; F41.9 Anxiety disorder, unspecified; F90.9 Attention-deficit hyperactivity disorder, unspecified type; E03.9 Hypothyroidism, unspecified; Z88.5 Allergy status to narcotic agent; Z88.2 Allergy status to sulfonamides; Z88.1 Allergy status to other antibiotic agents; Z88.8 Allergy status to other drugs, medicaments and biological substances; Z79.4 Long term (current) use of insulin; Z79.890 Hormone replacement therapy; Z79.899 Other long term (current) drug therapy
CPT/HCPCS: 36415; 36600; 71045; 72131; 80048; 80053; 80305; 80307; 81001; 82009; 82803; 82947; 83036; 83605; 83735; 84439; 84443; 84484; 85025; 93005; 96361; 96365; 96367; 96375; 96376; 97161; 99285; A9270; G0378; J0696; J1720; J1815; J1885; J3480; J7030; J7040; J7050; 93010; 96374; 99284; J3490

== ENCOUNTER 2023-05-14 22:22 | Emergency (ER) | payer MEDICARE, BC ==
[2023-05-14 22:54] LABS: BASOPHILS ABSOLUTE AUTO 0.04 K/uL (0.00-0.20); BASOPHILS PERCENT AUTO 0.5 % (0.0-1.0); EOSINOPHILS ABSOLUTE AUTO 0.05 K/uL (0.00-0.45); EOSINOPHILS PERCENT AUTO 0.6 % (0.0-6.0); HEMATOCRIT 40.9 % (37.0-47.0); IMMATURE GRAN ABSOLUTE AUTO 0.01 K/uL (0.00-0.05); IMMATURE GRAN PERCENT AUTO 0.1 % (0.0-0.4); LYMPHOCYTES ABSOLUTE AUTO 2.36 K/uL (1.00-4.80); LYMPHOCYTES PERCENT AUTO 27.5 % (24.0-44.0); MEAN CORPUSCULAR HEMOGLOBIN 29.3 pg (28.0-32.0); MEAN CORPUSCULAR HGB CONC 34.2 g/dL (32.0-36.0); MEAN CORPUSCULAR VOLUME 85.6 fL (83.0-99.0); MEAN PLATELET VOLUME 9.7 fL (9.4-12.3); MONOCYTES ABSOLUTE AUTO 0.62 K/uL (0.00-0.80); MONOCYTES PERCENT AUTO 7.2 % (0.0-8.0); NEUTROPHILS ABSOLUTE AUTO 5.51 K/uL (1.80-7.70); NEUTROPHILS PERCENT AUTO 64.1 % (41.0-71.0); PLATELET COUNT,PLT 210 K/uL (150-400); RED BLOOD CELL COUNT 4.78 M/uL (4.10-5.30); WHITE BLOOD CELL COUNT,WBC 8.59 K/uL (3.9-11.3)
[2023-05-14 23:20] LABS: A/G RATIO 0.7 (0.9-1.6); BILIRUBIN TOTAL 0.5 mg/dL (0.2-1.0); CALCIUM 9.8 mg/dL (8.5-10.1); CARBON DIOXIDE,CO2 24.3 mmol/L (21.0-32.0); CREATININE 1.3 mg/dL (0.6-1.0); EST CRCL DRUG DOSING (CG) 39.31 mL/min; POTASSIUM,K 3.8 mmol/L (3.5-5.1); PROTEIN TOTAL,TP 7.1 g/dL (6.4-8.2)
[2023-05-14 23:40] LABS: BILIRUBIN,URINE NEGATIVE (NEGATIVE); COLOR,URINE YELLOW; GLUCOSE,URINE 100 mg/dL (NEGATIVE); KETONES,URINE NEGATIVE (NEGATIVE); LEUKOCYTE ESTERASE,URINE NEGATIVE (NEGATIVE); NITRITE,URINE POSITIVE (NEGATIVE); OCCULT BLOOD,URINE NEGATIVE (NEGATIVE); PROTEIN,URINE NEGATIVE (NEGATIVE); UROBILINOGEN,URINE 0.2 EU/dL (<2.0)
[2023-05-14 23:47] LABS: APPEARANCE,URINE CLOUDY
[2023-05-14 23:48] LABS: BACTERIA,URINE 4+ (NEGATIVE); EPITHELIAL CELLS,URINE FEW (NONE-FEW); RBC,URINE 0-1 (0-2/HPF)
[2023-05-14 23:49] LABS: CORONAVIRUS COVID-19 NAA NEGATIVE (NEGATIVE); INFLUENZA A NAA NEGATIVE (NEGATIVE); INFLUENZA B NAA NEGATIVE (NEGATIVE); RESPIRATORY SYNCYTIAL VIR NAA NEGATIVE (NEGATIVE)
[2023-05-15] MEDS: cefTRIAXone 1 GM in Sodium Chloride 0.9% 50 ML IV ONE (00:08)
[2023-05-15 00:58] VITALS: BP 127/56; PULSE 68
== END 2023-05-15 00:49 | disposition home or self-care (01) ==
LOC: MW.ED 22:22
DX: N39.0 Urinary tract infection, site not specified (principal); R53.1 Weakness; I10 Essential (primary) hypertension; K21.9 Gastro-esophageal reflux disease without esophagitis; E11.9 Type 2 diabetes mellitus without complications; E03.9 Hypothyroidism, unspecified; Z88.5 Allergy status to narcotic agent; Z88.2 Allergy status to sulfonamides; Z88.8 Allergy status to other drugs, medicaments and biological substances; Z90.49 Acquired absence of other specified parts of digestive tract; Z79.899 Other long term (current) drug therapy; Z79.4 Long term (current) use of insulin; Z75.8 Other problems related to medical facilities and other health care
CPT/HCPCS: 0241U; 36415; 71045; 80053; 81001; 84484; 85025; 96365; 99285; J0696; J3490; 93010; 99283

== ENCOUNTER 2024-01-03 01:08 | Observation (INO) | payer MEDICARE, BC ==
[2024-01-03] MEDS ORDERED: Sodium Chloride 0.9% 10 ML Syringe FLUSH PRN (01:10)
[2024-01-03] MEDS: Sodium Chloride 0.9% 1,000 ML IV ONE ×2 (01:19→02:31)
[2024-01-03 01:46] LABS: BASE EXCESS VENOUS -0.8 (-2.0-3.0); PH,VENOUS 7.36 (7.31-7.41)
[2024-01-03 01:47] LABS: BASOPHILS ABSOLUTE AUTO 0.05 K/uL (0.00-0.20); BASOPHILS PERCENT AUTO 0.6 % (0.0-1.0); EOSINOPHILS ABSOLUTE AUTO 0.08 K/uL (0.00-0.45); EOSINOPHILS PERCENT AUTO 0.9 % (0.0-6.0); HEMOGLOBIN 14.4 g/dL (12.0-16.0); IMMATURE GRAN ABSOLUTE AUTO 0.02 K/uL (0.00-0.05); IMMATURE GRAN PERCENT AUTO 0.2 % (0.0-0.4); LYMPHOCYTES ABSOLUTE AUTO 2.49 K/uL (1.00-4.80); LYMPHOCYTES PERCENT AUTO 27.6 % (24.0-44.0); MEAN CORPUSCULAR HEMOGLOBIN 28.6 pg (28.0-32.0); MEAN CORPUSCULAR HGB CONC 33.5 g/dL (32.0-36.0); MEAN CORPUSCULAR VOLUME 85.3 fL (83.0-99.0); MONOCYTES ABSOLUTE AUTO 0.55 K/uL (0.00-0.80); MONOCYTES PERCENT AUTO 6.1 % (0.0-8.0); NEUTROPHILS ABSOLUTE AUTO 5.84 K/uL (1.80-7.70); NEUTROPHILS PERCENT AUTO 64.6 % (41.0-71.0); PLATELET COUNT,PLT 282 K/uL (150-400); RED BLOOD CELL COUNT 5.04 M/uL (4.10-5.30); WHITE BLOOD CELL COUNT,WBC 9.03 K/uL (3.9-11.3)
[2024-01-03 02:01] LABS: INR 1.05 (0.86-1.11)
[2024-01-03 02:21] LABS: A/G RATIO 1.1 (0.9-1.6); ALANINE AMINOTRANSFERASE,ALT 36 IU/L (14-63); ALBUMIN 3.6 g/dL (3.4-5.0); ALKALINE PHOSPHATASE 97 U/L (46-116); ASPARTATE AMNIOTRANSFERASE,AST 16 IU/L (15-37); BILIRUBIN TOTAL 0.5 mg/dL (0.2-1.0); BLOOD UREA NITROGEN,BUN 40 mg/dL (7.0-18.0); CALCIUM 9.9 mg/dL (8.5-10.1); CARBON DIOXIDE,CO2 26.6 mmol/L (21.0-32.0); CHLORIDE,CL 95 mmol/L (98-107); CREATININE 2.2 mg/dL (0.6-1.0); ESTIMATED GFR 24 mL/min (>60); ETHANOL BLOOD MEDICAL <3 mg/dL; GLUCOSE RANDOM 297 mg/dL (74-106); MAGNESIUM 2.2 mg/dL (1.8-2.4); POTASSIUM,K 3.5 mmol/L (3.5-5.1); PRO B-TYPE NATRIUR PEPT,BNPPRO 129 pg/mL (0-125); SODIUM,NA 132 mmol/L (136-145)
[2024-01-03] MEDS: cefTRIAXone 2 GM in Sodium Chloride 0.9% 50 ML IV ONE (02:26)
[2024-01-03 03:10] LABS: BILIRUBIN,URINE NEGATIVE (NEGATIVE); COLOR,URINE YELLOW; GLUCOSE,URINE >=1000 mg/dL (NEGATIVE); KETONES,URINE NEGATIVE (NEGATIVE); LEUKOCYTE ESTERASE,URINE SMALL (NEGATIVE); NITRITE,URINE NEGATIVE (NEGATIVE); OCCULT BLOOD,URINE TRACE-INTACT (NEGATIVE); PH,URINE 5.5 (5.0-8.0); PROTEIN,URINE NEGATIVE (NEGATIVE); UROBILINOGEN,URINE 0.2 EU/dL (<2.0)
[2024-01-03 03:20] LABS: AMPHETAMINES SCREEN, URINE NEGATIVE (CUTOFF=500); BARBITURATE SCREEN,URINE NEGATIVE (CUTOFF=200); BENZODIAZEPINES SCREEN,URINE PRESUMPTIVE POSITIVE (CUTOFF=150); BUPRENORPHINE SCREEN,URINE NEGATIVE (CUTOFF=10); METHADONE SCREEN, URINE NEGATIVE (CUTOFF=200); METHAMPHETAMINES SCREEN, URINE NEGATIVE (CUTOFF=500); OXYCODONE SCREEN,URINE NEGATIVE (CUT0FF=100); PCP SCREEN,URINE NEGATIVE (CUTOFF=25); THC SCREEN,URINE 20 NG/ML NEGATIVE (CUTOFF=50)
[2024-01-03 03:21] LABS: AMORPHOUS SEDIMENT,URINE MODERATE (NEGATIVE); APPEARANCE,URINE CLOUDY; BACTERIA,URINE 4+ (NEGATIVE); EPITHELIAL CELLS,URINE FEW (NONE-FEW); RBC,URINE 0-3 (0-2/HPF); WBC,URINE 18-26 (0-5/HPF)
[2024-01-03] MEDS: Doxycycline 100 MG in Sodium Chloride 0.9% 100 ML IV ONE (03:26)
[2024-01-03] MEDS ORDERED: 50% Dextrose in Water 50 ML Syringe IVPUSH PRN ×3 (03:42→09:45)
[2024-01-03] MEDS ORDERED: Glucagon,Human Recombinant 1 MG Vial IM PRN ×3 (03:42→09:45)
[2024-01-03] MEDS ORDERED: Insulin Regular, Human 100 Units/ML 10 ML Vial IVPUSH ONE (03:42)
[2024-01-03 03:50] LABS: HEMOGLOBIN A1C 12.1 %
[2024-01-03] MEDS ORDERED: Insulin Aspart 100 Units/ML 3 ML Pen SUBCUT SCH (11:30)
[2024-01-03] MEDS: Insulin Aspart 100 Units/ML 3 ML Pen SUBCUT SCH ×2 (12:07→12:09)
[2024-01-03] MEDS: Acetaminophen 325 MG Tab PO PRN (13:15)
[2024-01-03] MEDS: Insulin Glargine,Hum.Rec.Anlog 100 UNIT/ML 3 ML Pen SUBCUT SCH (20:59)
[2024-01-03] MEDS: Fenofibrate,Micronized 67 MG Cap PO SCH (20:59)
[2024-01-03] MEDS: QUEtiapine 100 MG Tab PO SCH (20:59)
[2024-01-04] MEDS: cefTRIAXone 1 GM in Sodium Chloride 0.9% 50 ML IV SCH (01:29)
[2024-01-04] MEDS: Levothyroxine 150 MCG Tab PO SCH (06:41)
[2024-01-04 06:48] LABS: BASOPHILS ABSOLUTE AUTO 0.03 K/uL (0.00-0.20); BASOPHILS PERCENT AUTO 0.4 % (0.0-1.0); EOSINOPHILS PERCENT AUTO 1.5 % (0.0-6.0); HEMATOCRIT 41.8 % (37.0-47.0); HEMOGLOBIN 13.8 g/dL (12.0-16.0); IMMATURE GRAN ABSOLUTE AUTO 0.01 K/uL (0.00-0.05); IMMATURE GRAN PERCENT AUTO 0.1 % (0.0-0.4); LYMPHOCYTES ABSOLUTE AUTO 2.88 K/uL (1.00-4.80); LYMPHOCYTES PERCENT AUTO 42.9 % (24.0-44.0); MEAN CORPUSCULAR HEMOGLOBIN 29.1 pg (28.0-32.0); MEAN PLATELET VOLUME 9.9 fL (9.4-12.3); MONOCYTES ABSOLUTE AUTO 0.52 K/uL (0.00-0.80); MONOCYTES PERCENT AUTO 7.7 % (0.0-8.0); NEUTROPHILS ABSOLUTE AUTO 3.18 K/uL (1.80-7.70); NEUTROPHILS PERCENT AUTO 47.4 % (41.0-71.0); PLATELET COUNT,PLT 220 K/uL (150-400); RED BLOOD CELL COUNT 4.75 M/uL (4.10-5.30); WHITE BLOOD CELL COUNT,WBC 6.72 K/uL (3.9-11.3)
[2024-01-04 07:20] LABS: A/G RATIO 0.9 (0.9-1.6); ALBUMIN 3.3 g/dL (3.4-5.0); BILIRUBIN TOTAL 0.4 mg/dL (0.2-1.0); CALCIUM 9.2 mg/dL (8.5-10.1); CARBON DIOXIDE,CO2 29.7 mmol/L (21.0-32.0); CREATININE 1.3 mg/dL (0.6-1.0); EST CRCL DRUG DOSING (CG) 38.77 mL/min; POTASSIUM,K 4.1 mmol/L (3.5-5.1); PROTEIN TOTAL,TP 6.8 g/dL (6.4-8.2)
[2024-01-04] MEDS ORDERED: CARIPRAZINE HCL 3 MG PO SCH (09:00)
[2024-01-04 12:33] VITALS: BP 144/64; PULSE 87
== END 2024-01-04 15:37 | disposition home or self-care (01) ==
LOC: MW.ED 01:08 → MW.MS 03:27
PROVIDERS: ADMIT Internal Medicine; ATTEND Internal Medicine
DX: I95.9 Hypotension, unspecified (principal); N17.9 Acute kidney failure, unspecified; E11.65 Type 2 diabetes mellitus with hyperglycemia; E86.1 Hypovolemia; I10 Essential (primary) hypertension; E78.00 Pure hypercholesterolemia, unspecified; N39.0 Urinary tract infection, site not specified; E03.9 Hypothyroidism, unspecified; Z88.5 Allergy status to narcotic agent; Z88.2 Allergy status to sulfonamides; Z79.4 Long term (current) use of insulin; Z79.2 Long term (current) use of antibiotics; Z79.899 Other long term (current) drug therapy; Z79.890 Hormone replacement therapy
CPT/HCPCS: 36415; 71045; 71250; 74176; 80053; 80305; 80307; 81001; 82803; 82947; 83036; 83605; 83735; 83880; 84484; 85025; 85610; 87040; 93005; 96361; 96365; 96366; 96367; 99285; A9270; G0378; J0696; J1815; J3490; J7030

== ENCOUNTER 2024-02-10 21:09 | Emergency (ER) | payer MEDICARE, BC ==
[2024-02-10 21:46] VITALS: BP 174/70; PULSE 70
[2024-02-10] MEDS: Cyclobenzaprine 10 MG Tab PO STA (22:34)
[2024-02-11] MEDS: Cyclobenzaprine 10 MG Tab PO ONE (01:36)
== END 2024-02-11 01:46 | disposition home or self-care (01) ==
LOC: MW.ED 21:09
DX: R10.31 Right lower quadrant pain (principal); M25.551 Pain in right hip; I10 Essential (primary) hypertension; E11.42 Type 2 diabetes mellitus with diabetic polyneuropathy
CPT/HCPCS: 73502; 99283; A9270

== ENCOUNTER 2024-03-07 10:34 | Emergency (ER) | payer MEDICARE, BC ==
[2024-03-07 11:16] VITALS: BP 140/55
[2024-03-07 12:11] LABS: APPEARANCE,URINE SLT CLOUDY; BILIRUBIN,URINE NEGATIVE (NEGATIVE); COLOR,URINE YELLOW; GLUCOSE,URINE 250 mg/dL (NEGATIVE); KETONES,URINE NEGATIVE (NEGATIVE); LEUKOCYTE ESTERASE,URINE NEGATIVE (NEGATIVE); NITRITE,URINE NEGATIVE (NEGATIVE); OCCULT BLOOD,URINE NEGATIVE (NEGATIVE); PROTEIN,URINE NEGATIVE (NEGATIVE); UROBILINOGEN,URINE 0.2 EU/dL (<2.0)
[2024-03-07 12:21] LABS: RBC,URINE 0-2 (0-2/HPF)
[2024-03-07 12:22] LABS: BACTERIA,URINE 3+ (NEGATIVE); EPITHELIAL CELLS,URINE RARE (NONE-FEW)
[2024-03-07] MEDS: Cefdinir 300 MG Cap PO ONE (12:58)
[2024-03-07 13:07] VITALS: PULSE 89
== END 2024-03-07 13:07 | disposition home or self-care (01) ==
LOC: MW.ED 10:34
DX: R30.0 Dysuria (principal); I10 Essential (primary) hypertension; E11.9 Type 2 diabetes mellitus without complications; E03.9 Hypothyroidism, unspecified; Z90.49 Acquired absence of other specified parts of digestive tract; Z88.2 Allergy status to sulfonamides; Z88.5 Allergy status to narcotic agent; Z88.8 Allergy status to other drugs, medicaments and biological substances; Z79.4 Long term (current) use of insulin; Z79.890 Hormone replacement therapy; Z79.899 Other long term (current) drug therapy; Z75.8 Other problems related to medical facilities and other health care
CPT/HCPCS: 81001; 87086; 99284; A9270; 87088; 87186

== ENCOUNTER 2024-03-20 00:49 | Emergency (ER) | payer MEDICARE, BC ==
[2024-03-20] MEDS: Ketorolac 30 MG/ML SDV IVPUSH ONE (01:15)
[2024-03-20] MEDS: Morphine 4 MG/ML Syringe IVPUSH ONE ×2 (01:15→04:48)
[2024-03-20] MEDS: Sodium Chloride 0.9% 10 ML Syringe FLUSH PRN (01:16)
[2024-03-20] MEDS: Sodium Chloride 0.9% 2.5 ML Syringe FLUSH PRN (01:16)
[2024-03-20] MEDS: Sodium Chloride 0.9% 1,000 ML IV ONE (01:18)
[2024-03-20 01:27] LABS: BASOPHILS ABSOLUTE AUTO 0.05 K/uL (0.00-0.20); BASOPHILS PERCENT AUTO 0.5 % (0.0-1.0); EOSINOPHILS ABSOLUTE AUTO 0.13 K/uL (0.00-0.45); EOSINOPHILS PERCENT AUTO 1.3 % (0.0-6.0); HEMOGLOBIN 13.4 g/dL (12.0-16.0); IMMATURE GRAN ABSOLUTE AUTO 0.02 K/uL (0.00-0.05); IMMATURE GRAN PERCENT AUTO 0.2 % (0.0-0.4); LYMPHOCYTES ABSOLUTE AUTO 2.78 K/uL (1.00-4.80); LYMPHOCYTES PERCENT AUTO 27.5 % (24.0-44.0); MEAN CORPUSCULAR HEMOGLOBIN 29.8 pg (28.0-32.0); MEAN CORPUSCULAR HGB CONC 35.3 g/dL (32.0-36.0); MEAN CORPUSCULAR VOLUME 84.6 fL (83.0-99.0); MEAN PLATELET VOLUME 9.6 fL (9.4-12.3); MONOCYTES ABSOLUTE AUTO 0.52 K/uL (0.00-0.80); MONOCYTES PERCENT AUTO 5.1 % (0.0-8.0); NEUTROPHILS PERCENT AUTO 65.4 % (41.0-71.0); PLATELET COUNT,PLT 281 K/uL (150-400); RED BLOOD CELL COUNT 4.49 M/uL (4.10-5.30)
[2024-03-20 01:51] LABS: A/G RATIO 0.9 (0.9-1.6); ALANINE AMINOTRANSFERASE,ALT 23 IU/L (14-63); ALBUMIN 3.2 g/dL (3.4-5.0); ALKALINE PHOSPHATASE 155 U/L (46-116); ASPARTATE AMNIOTRANSFERASE,AST 17 IU/L (15-37); BILIRUBIN TOTAL 0.8 mg/dL (0.2-1.0); BLOOD UREA NITROGEN,BUN 19 mg/dL (7.0-18.0); CALCIUM 9.4 mg/dL (8.5-10.1); CARBON DIOXIDE,CO2 21.3 mmol/L (21.0-32.0); CHLORIDE,CL 102 mmol/L (98-107); CREATININE 1.4 mg/dL (0.6-1.0); ESTIMATED GFR 41 mL/min (>60); GLUCOSE RANDOM 383 mg/dL (74-106); POTASSIUM,K 3.9 mmol/L (3.5-5.1); PROTEIN TOTAL,TP 6.8 g/dL (6.4-8.2); SODIUM,NA 135 mmol/L (136-145)
[2024-03-20] MEDS: Alum Hydrox/Mag Hydrox/Simeth 15 ML, Lidocaine 2% 5 ML PO ONE (04:48)
[2024-03-20 05:15] LABS: APPEARANCE,URINE CLEAR; COLOR,URINE YELLOW; GLUCOSE,URINE 1000 mg/dL (NEGATIVE); KETONES,URINE TRACE mg/dL (NEGATIVE); PROTEIN,URINE NEGATIVE (NEGATIVE)
[2024-03-20 05:16] LABS: BILIRUBIN,URINE NEGATIVE (NEGATIVE); LEUKOCYTE ESTERASE,URINE NEGATIVE (NEGATIVE); NITRITE,URINE NEGATIVE (NEGATIVE); OCCULT BLOOD,URINE NEGATIVE (NEGATIVE); UROBILINOGEN,URINE 0.2 EU/dL (<2.0)
[2024-03-20 05:58] VITALS: BP 163/61; PULSE 69
== END 2024-03-20 05:58 | disposition home or self-care (01) ==
LOC: MW.ED 00:49
DX: S32.9XXA Fracture of unspecified parts of lumbosacral spine and pelvis, initial encounter for closed fracture (principal); E86.0 Dehydration; I10 Essential (primary) hypertension; E78.00 Pure hypercholesterolemia, unspecified; E11.9 Type 2 diabetes mellitus without complications; E03.9 Hypothyroidism, unspecified; Z75.8 Other problems related to medical facilities and other health care; Z88.5 Allergy status to narcotic agent; Z88.8 Allergy status to other drugs, medicaments and biological substances; Z88.2 Allergy status to sulfonamides; Z79.4 Long term (current) use of insulin; Z79.84 Long term (current) use of oral hypoglycemic drugs; Z79.899 Other long term (current) drug therapy; Z90.49 Acquired absence of other specified parts of digestive tract; X58.XXXA Exposure to other specified factors, initial encounter; Y93.89 Activity, other specified
CPT/HCPCS: 36415; 72192; 80053; 81003; 85025; 93005; 96361; 96374; 96375; 96376; 99285; A9270; J1885; J2270; J7030; J3490

== ENCOUNTER 2024-04-13 14:42 | Emergency (ER) | payer MEDICARE, BC ==
[2024-04-13 14:55] VITALS: BP 185/65; PULSE 75
[2024-04-13 16:08] LABS: APPEARANCE,URINE CLEAR; BILIRUBIN,URINE NEGATIVE (NEGATIVE); COLOR,URINE YELLOW; GLUCOSE,URINE >=1000 mg/dL (NEGATIVE); KETONES,URINE 15 mg/dL (NEGATIVE); LEUKOCYTE ESTERASE,URINE NEGATIVE (NEGATIVE); NITRITE,URINE NEGATIVE (NEGATIVE); OCCULT BLOOD,URINE NEGATIVE (NEGATIVE); PROTEIN,URINE NEGATIVE (NEGATIVE)
== END 2024-04-13 17:05 | disposition home or self-care (01) ==
LOC: MW.ED 14:42
DX: S32.592A Other specified fracture of left pubis, initial encounter for closed fracture (principal); S32.591A Other specified fracture of right pubis, initial encounter for closed fracture; K59.00 Constipation, unspecified; R30.0 Dysuria; I10 Essential (primary) hypertension; E78.00 Pure hypercholesterolemia, unspecified; K21.9 Gastro-esophageal reflux disease without esophagitis; E11.9 Type 2 diabetes mellitus without complications; E03.9 Hypothyroidism, unspecified; Z79.899 Other long term (current) drug therapy; Z79.84 Long term (current) use of oral hypoglycemic drugs; Z79.4 Long term (current) use of insulin; Z88.5 Allergy status to narcotic agent; Z88.8 Allergy status to other drugs, medicaments and biological substances; Z88.2 Allergy status to sulfonamides; X58.XXXA Exposure to other specified factors, initial encounter
CPT/HCPCS: 51702; 72192; 72192-26; 81003; 99284

== ENCOUNTER 2024-04-19 | Inpatient (IN) | payer MEDICARE, BC ==
[2024-04-19 03:18] LABS: BASOPHILS ABSOLUTE AUTO 0.03 K/uL (0.00-0.20); BASOPHILS PERCENT AUTO 0.3 % (0.0-1.0); EOSINOPHILS ABSOLUTE AUTO 0.09 K/uL (0.00-0.45); EOSINOPHILS PERCENT AUTO 0.9 % (0.0-6.0); HEMATOCRIT 38.7 % (37.0-47.0); HEMOGLOBIN 12.4 g/dL (12.0-16.0); IMMATURE GRAN ABSOLUTE AUTO 0.02 K/uL (0.00-0.05); IMMATURE GRAN PERCENT AUTO 0.2 % (0.0-0.4); LYMPHOCYTES ABSOLUTE AUTO 2.42 K/uL (1.00-4.80); LYMPHOCYTES PERCENT AUTO 24.2 % (24.0-44.0); MEAN CORPUSCULAR HEMOGLOBIN 29.3 pg (28.0-32.0); MEAN CORPUSCULAR VOLUME 91.5 fL (83.0-99.0); MEAN PLATELET VOLUME 9.7 fL (9.4-12.3); MONOCYTES ABSOLUTE AUTO 0.68 K/uL (0.00-0.80); MONOCYTES PERCENT AUTO 6.8 % (0.0-8.0); NEUTROPHILS ABSOLUTE AUTO 6.74 K/uL (1.80-7.70); NEUTROPHILS PERCENT AUTO 67.6 % (41.0-71.0); PLATELET COUNT,PLT 297 K/uL (150-400); RED BLOOD CELL COUNT 4.23 M/uL (4.10-5.30); WHITE BLOOD CELL COUNT,WBC 9.98 K/uL (3.9-11.3)
[2024-04-19 03:40] LABS: A/G RATIO 0.7 (0.9-1.6); ALBUMIN 2.8 g/dL (3.4-5.0); BILIRUBIN TOTAL 0.6 mg/dL (0.2-1.0); CALCIUM 10.2 mg/dL (8.5-10.1); CARBON DIOXIDE,CO2 31.3 mmol/L (21.0-32.0); CREATININE 1.3 mg/dL (0.6-1.0); EST CRCL DRUG DOSING (CG) 34.26 mL/min; POTASSIUM,K 5.7 mmol/L (3.5-5.1); PROTEIN TOTAL,TP 6.6 g/dL (6.4-8.2)
[2024-04-19] MEDS: Acetaminophen 500 MG Tab PO ONE (05:51)
[2024-04-19] MEDS ORDERED: Ondansetron 4 MG/2 ML SDV IVPUSH PRN (10:57)
[2024-04-19] MEDS ORDERED: Acetaminophen 325 MG Tab PO PRN (10:57)
[2024-04-19] MEDS ORDERED: Sodium Chloride 0.9% 2.5 ML Syringe FLUSH PRN (10:57)
[2024-04-19] MEDS ORDERED: Albuterol 0.083% 2.5 MG/3 ML Neb Soln NEB PRN (10:57)
[2024-04-19] MEDS ORDERED: Sodium Chloride 0.9% 10 ML Syringe FLUSH PRN (10:57)
[2024-04-19] MEDS ORDERED: Polyethylene Glycol 3350 Powder 17 GM Packet PO PRN (10:57)
[2024-04-19] MEDS ORDERED: 50% Dextrose in Water 50 ML Syringe IVPUSH PRN (11:00)
[2024-04-19] MEDS ORDERED: Glucagon,Human Recombinant 1 MG Vial IM PRN (11:00)
[2024-04-19] MEDS ORDERED: Prochlorperazine 10 MG Tab PO PRN (11:05)
[2024-04-19] MEDS: Insulin Aspart 100 Units/ML 3 ML Pen SUBCUT SCH (11:59)
[2024-04-19] MEDS: Nystatin Topical Powder 15 GM Bottle TOP SCH (14:37)
[2024-04-19] MEDS ORDERED: Naloxone 0.4 MG/ML SDV IVPUSH PRN (14:54)
[2024-04-19] MEDS: Fluconazole 150 MG Tab PO SCH (15:32)
[2024-04-19] MEDS: Ondansetron 4 MG/2 ML SDV IVPUSH PRN (15:46)
[2024-04-19] MEDS: Morphine 2 MG/ML SYRINGE IVPUSH PRN (16:00)
[2024-04-19] MEDS: amLODIPine 2.5 MG Tab PO SCH (16:02)
[2024-04-19] MEDS: Propranolol 80 MG Cap.ER PO SCH (16:02)
[2024-04-19] MEDS: Heparin Sodium 5,000 Units/ML Vial SUBCUT SCH (16:02)
[2024-04-19] MEDS: CARIPRAZINE HCL 3 MG PO SCH (16:02)
[2024-04-19] MEDS: Sodium Chloride 0.9% 1,000 ML IV STA (16:06)
[2024-04-19] MEDS: Gabapentin 300 MG Cap PO SCH (16:48)
[2024-04-19] MEDS: Bisacodyl 10 MG Supp RECTAL ONE (18:38)
[2024-04-19] MEDS: Nystatin Topical Powder 15 GM Bottle ONE (19:55)
[2024-04-19] MEDS: Temazepam 15 MG Cap PO SCH (21:48)
[2024-04-19] MEDS: Cariprazine Hcl [Vraylar] 3 MG Capsule PO SCH (22:16)
[2024-04-19] MEDS: Docusate Sodium 100 MG Cap PO PRN (22:16)
[2024-04-19] MEDS: Lithium Carbonate 150 MG Capsule PO SCH (22:18)
[2024-04-19] MEDS: Docusate Sodium 100 MG Cap ONE (22:25)
[2024-04-19] MEDS: QUEtiapine 100 MG Tab PO SCH (22:50)
[2024-04-19] MEDS: rOPINIRole 1 MG Tab PO SCH (22:50)
[2024-04-19] MEDS: rOPINIRole 1 MG Tab ONE (22:51)
[2024-04-19] MEDS: QUEtiapine 100 MG Tab ONE (22:51)
[2024-04-19] MEDS: Heparin Sodium 5,000 Units/ML Vial ONE (22:56)
[2024-04-19 23:22] LABS: APPEARANCE,URINE CLOUDY; BILIRUBIN,URINE NEGATIVE (NEGATIVE); COLOR,URINE YELLOW; GLUCOSE,URINE 500 mg/dL (NEGATIVE); KETONES,URINE 40 mg/dL (NEGATIVE); LEUKOCYTE ESTERASE,URINE NEGATIVE (NEGATIVE); NITRITE,URINE NEGATIVE (NEGATIVE); OCCULT BLOOD,URINE NEGATIVE (NEGATIVE); PROTEIN,URINE NEGATIVE (NEGATIVE); UROBILINOGEN,URINE 0.2 EU/dL (<2.0)
[2024-04-20] MEDS: Acetaminophen/oxyCODONE 325-5 MG Tab PO PRN (01:43)
[2024-04-20] MEDS: Acetaminophen/oxyCODONE 325-5 MG Tab ONE (01:45)
[2024-04-20 05:45] LABS: BASOPHILS ABSOLUTE AUTO 0.04 K/uL (0.00-0.20); BASOPHILS PERCENT AUTO 0.3 % (0.0-1.0); EOSINOPHILS ABSOLUTE AUTO 0.02 K/uL (0.00-0.45); EOSINOPHILS PERCENT AUTO 0.2 % (0.0-6.0); HEMATOCRIT 35.5 % (37.0-47.0); HEMOGLOBIN 11.6 g/dL (12.0-16.0); IMMATURE GRAN ABSOLUTE AUTO 0.03 K/uL (0.00-0.05); IMMATURE GRAN PERCENT AUTO 0.3 % (0.0-0.4); LYMPHOCYTES ABSOLUTE AUTO 2.92 K/uL (1.00-4.80); LYMPHOCYTES PERCENT AUTO 25.2 % (24.0-44.0); MEAN CORPUSCULAR HEMOGLOBIN 29.2 pg (28.0-32.0); MEAN CORPUSCULAR HGB CONC 32.7 g/dL (32.0-36.0); MEAN CORPUSCULAR VOLUME 89.4 fL (83.0-99.0); MEAN PLATELET VOLUME 9.8 fL (9.4-12.3); MONOCYTES ABSOLUTE AUTO 0.73 K/uL (0.00-0.80); MONOCYTES PERCENT AUTO 6.3 % (0.0-8.0); NEUTROPHILS ABSOLUTE AUTO 7.84 K/uL (1.80-7.70); NEUTROPHILS PERCENT AUTO 67.7 % (41.0-71.0); PLATELET COUNT,PLT 326 K/uL (150-400); RED BLOOD CELL COUNT 3.97 M/uL (4.10-5.30); WHITE BLOOD CELL COUNT,WBC 11.58 K/uL (3.9-11.3)
[2024-04-20 06:13] LABS: CALCIUM 9.5 mg/dL (8.5-10.1); CARBON DIOXIDE,CO2 28.5 mmol/L (21.0-32.0); EST CRCL DRUG DOSING (CG) 50.41 mL/min; MAGNESIUM 2.2 mg/dL (1.8-2.4); POTASSIUM,K 4.9 mmol/L (3.5-5.1)
[2024-04-20] MEDS: FLUoxetine 20 MG Cap PO SCH (08:55)
[2024-04-20] MEDS: Levothyroxine 150 MCG Tab PO SCH ×2 (09:06→09:10)
[2024-04-20] MEDS: Polyethylene Glycol 3350 Powder 17 GM Packet PO SCH (09:08)
[2024-04-20] MEDS: Furosemide 40 MG Tab PO SCH ×2 (09:08→09:10)
[2024-04-20] MEDS: amLODIPine 2.5 MG Tab PO SCH (09:11)
[2024-04-20 10:42] LABS: APPEARANCE,URINE SLT CLOUDY; BILIRUBIN,URINE NEGATIVE (NEGATIVE); COLOR,URINE YELLOW; GLUCOSE,URINE NEGATIVE (NEGATIVE); KETONES,URINE NEGATIVE (NEGATIVE); LEUKOCYTE ESTERASE,URINE SMALL (NEGATIVE); NITRITE,URINE POSITIVE (NEGATIVE); OCCULT BLOOD,URINE NEGATIVE (NEGATIVE); PROTEIN,URINE NEGATIVE (NEGATIVE); UROBILINOGEN,URINE 0.2 EU/dL (<2.0)
[2024-04-20] MEDS: Calcium Carbonate/Vitamin D3 1500 MG-400 Units Tab PO SCH (10:42)
[2024-04-20 10:59] LABS: RBC,URINE 0-3 (0-2/HPF)
[2024-04-20 11:00] LABS: BACTERIA,URINE 3+ (NEGATIVE); EPITHELIAL CELLS,URINE RARE (NONE-FEW)
[2024-04-20] MEDS: cefTRIAXone 1 GM in Sodium Chloride 0.9% 50 ML IV SCH (11:58)
[2024-04-20] MEDS: Heparin Sodium 5,000 Units/ML Vial SUBCUT SCH (12:00)
[2024-04-20] MEDS: Bisacodyl 10 MG Supp RECTAL ONE (12:08)
[2024-04-20] MEDS: QUEtiapine 100 MG Tab ONE (22:31)
[2024-04-20] MEDS: rOPINIRole 1 MG Tab ONE (22:31)
[2024-04-21] MEDS: Melatonin 3 MG Tab PO PRN (01:55)
[2024-04-21] MEDS: Melatonin 3 MG Tab ONE (02:27)
[2024-04-21] MEDS: Baclofen 10 MG Tab PO PRN ×2 (04:57→17:07)
[2024-04-21] MEDS: Baclofen 10 MG Tab ONE (04:57)
[2024-04-21 05:47] LABS: BASOPHILS ABSOLUTE AUTO 0.04 K/uL (0.00-0.20); BASOPHILS PERCENT AUTO 0.3 % (0.0-1.0); EOSINOPHILS ABSOLUTE AUTO 0.14 K/uL (0.00-0.45); EOSINOPHILS PERCENT AUTO 1.2 % (0.0-6.0); HEMOGLOBIN 13.1 g/dL (12.0-16.0); IMMATURE GRAN ABSOLUTE AUTO 0.04 K/uL (0.00-0.05); IMMATURE GRAN PERCENT AUTO 0.3 % (0.0-0.4); LYMPHOCYTES ABSOLUTE AUTO 4.14 K/uL (1.00-4.80); LYMPHOCYTES PERCENT AUTO 35.8 % (24.0-44.0); MEAN CORPUSCULAR HEMOGLOBIN 29.2 pg (28.0-32.0); MEAN CORPUSCULAR HGB CONC 32.8 g/dL (32.0-36.0); MEAN CORPUSCULAR VOLUME 89.1 fL (83.0-99.0); MEAN PLATELET VOLUME 9.5 fL (9.4-12.3); MONOCYTES ABSOLUTE AUTO 1.01 K/uL (0.00-0.80); MONOCYTES PERCENT AUTO 8.7 % (0.0-8.0); NEUTROPHILS PERCENT AUTO 53.7 % (41.0-71.0); PLATELET COUNT,PLT 325 K/uL (150-400); RED BLOOD CELL COUNT 4.49 M/uL (4.10-5.30); WHITE BLOOD CELL COUNT,WBC 11.57 K/uL (3.9-11.3)
[2024-04-21 06:12] LABS: CALCIUM 10.2 mg/dL (8.5-10.1); CARBON DIOXIDE,CO2 30.2 mmol/L (21.0-32.0); EST CRCL DRUG DOSING (CG) 50.41 mL/min
[2024-04-21] MEDS: Acetaminophen 325 MG Tab PO PRN (07:17)
[2024-04-21] MEDS ORDERED: Docusate Sodium 100 MG Cap PO PRN (12:22)
[2024-04-21] MEDS ORDERED: 50% Dextrose in Water 50 ML Syringe IVPUSH PRN (12:22)
[2024-04-21] MEDS ORDERED: Glucagon,Human Recombinant 1 MG Vial IM PRN (12:23)
[2024-04-21] MEDS ORDERED: Prochlorperazine 10 MG Tab PO PRN (12:24)
[2024-04-21] MEDS: Sennosides/Docusate Sodium 50-8.6 MG Tab PO SCH (12:59)
[2024-04-21] MEDS: Magnesium Citrate Solution 296 ML Bottle PO ONE (14:31)
[2024-04-21] MEDS: Nystatin Topical Powder 15 GM Bottle TOP SCH (15:38)
[2024-04-21] MEDS: rOPINIRole 1 MG Tab PO SCH (21:23)
[2024-04-21] MEDS: QUEtiapine 100 MG Tab PO SCH (21:24)
[2024-04-22 06:47] LABS: BASOPHILS ABSOLUTE AUTO 0.03 K/uL (0.00-0.20); BASOPHILS PERCENT AUTO 0.3 % (0.0-1.0); EOSINOPHILS ABSOLUTE AUTO 0.16 K/uL (0.00-0.45); EOSINOPHILS PERCENT AUTO 1.5 % (0.0-6.0); HEMATOCRIT 40.6 % (37.0-47.0); IMMATURE GRAN ABSOLUTE AUTO 0.03 K/uL (0.00-0.05); IMMATURE GRAN PERCENT AUTO 0.3 % (0.0-0.4); LYMPHOCYTES ABSOLUTE AUTO 2.63 K/uL (1.00-4.80); MEAN CORPUSCULAR HEMOGLOBIN 28.6 pg (28.0-32.0); MEAN CORPUSCULAR VOLUME 89.2 fL (83.0-99.0); MEAN PLATELET VOLUME 9.5 fL (9.4-12.3); MONOCYTES ABSOLUTE AUTO 0.65 K/uL (0.00-0.80); MONOCYTES PERCENT AUTO 5.9 % (0.0-8.0); NEUTROPHILS ABSOLUTE AUTO 7.45 K/uL (1.80-7.70); PLATELET COUNT,PLT 332 K/uL (150-400); RED BLOOD CELL COUNT 4.55 M/uL (4.10-5.30); WHITE BLOOD CELL COUNT,WBC 10.95 K/uL (3.9-11.3)
[2024-04-22 07:04] LABS: CARBON DIOXIDE,CO2 27.6 mmol/L (21.0-32.0); EST CRCL DRUG DOSING (CG) 50.41 mL/min; POTASSIUM,K 4.7 mmol/L (3.5-5.1)
[2024-04-22] MEDS: Lactulose Soln 10 GM/15 ML 15 ML UD Cup PO SCH (08:59)
[2024-04-22] MEDS: Melatonin 3 MG Tab PO PRN (20:27)
[2024-04-22] MEDS: rOPINIRole 1 MG Tab PO SCH (20:28)
[2024-04-23 06:38] LABS: BASOPHILS ABSOLUTE AUTO 0.03 K/uL (0.00-0.20); BASOPHILS PERCENT AUTO 0.3 % (0.0-1.0); EOSINOPHILS ABSOLUTE AUTO 0.21 K/uL (0.00-0.45); EOSINOPHILS PERCENT AUTO 1.8 % (0.0-6.0); HEMATOCRIT 39.5 % (37.0-47.0); HEMOGLOBIN 12.8 g/dL (12.0-16.0); IMMATURE GRAN ABSOLUTE AUTO 0.04 K/uL (0.00-0.05); IMMATURE GRAN PERCENT AUTO 0.3 % (0.0-0.4); LYMPHOCYTES ABSOLUTE AUTO 3.76 K/uL (1.00-4.80); LYMPHOCYTES PERCENT AUTO 32.3 % (24.0-44.0); MEAN CORPUSCULAR HEMOGLOBIN 28.6 pg (28.0-32.0); MEAN CORPUSCULAR HGB CONC 32.4 g/dL (32.0-36.0); MEAN CORPUSCULAR VOLUME 88.4 fL (83.0-99.0); MEAN PLATELET VOLUME 9.6 fL (9.4-12.3); MONOCYTES ABSOLUTE AUTO 0.81 K/uL (0.00-0.80); NEUTROPHILS ABSOLUTE AUTO 6.79 K/uL (1.80-7.70); NEUTROPHILS PERCENT AUTO 58.3 % (41.0-71.0); PLATELET COUNT,PLT 410 K/uL (150-400); RED BLOOD CELL COUNT 4.47 M/uL (4.10-5.30); WHITE BLOOD CELL COUNT,WBC 11.64 K/uL (3.9-11.3)
[2024-04-23 07:16] LABS: CALCIUM 10.4 mg/dL (8.5-10.1); CREATININE 1.2 mg/dL (0.6-1.0); MAGNESIUM 2.5 mg/dL (1.8-2.4); POTASSIUM,K 3.8 mmol/L (3.5-5.1)
[2024-04-23] MEDS: Sodium Chloride 0.9% 1,000 ML IV ONE (12:29)
[2024-04-23] MEDS: traZODone 50 MG Tab PO ONE (20:47)
[2024-04-24 05:46] LABS: BASOPHILS ABSOLUTE AUTO 0.05 K/uL (0.00-0.20); BASOPHILS PERCENT AUTO 0.5 % (0.0-1.0); EOSINOPHILS ABSOLUTE AUTO 0.09 K/uL (0.00-0.45); EOSINOPHILS PERCENT AUTO 0.8 % (0.0-6.0); HEMATOCRIT 40.7 % (37.0-47.0); HEMOGLOBIN 12.9 g/dL (12.0-16.0); IMMATURE GRAN ABSOLUTE AUTO 0.02 K/uL (0.00-0.05); IMMATURE GRAN PERCENT AUTO 0.2 % (0.0-0.4); LYMPHOCYTES ABSOLUTE AUTO 3.25 K/uL (1.00-4.80); LYMPHOCYTES PERCENT AUTO 29.5 % (24.0-44.0); MEAN CORPUSCULAR HEMOGLOBIN 28.7 pg (28.0-32.0); MEAN CORPUSCULAR HGB CONC 31.7 g/dL (32.0-36.0); MEAN CORPUSCULAR VOLUME 90.6 fL (83.0-99.0); MEAN PLATELET VOLUME 9.6 fL (9.4-12.3); MONOCYTES PERCENT AUTO 7.3 % (0.0-8.0); NEUTROPHILS ABSOLUTE AUTO 6.82 K/uL (1.80-7.70); NEUTROPHILS PERCENT AUTO 61.7 % (41.0-71.0); PLATELET COUNT,PLT 378 K/uL (150-400); RED BLOOD CELL COUNT 4.49 M/uL (4.10-5.30); WHITE BLOOD CELL COUNT,WBC 11.03 K/uL (3.9-11.3)
[2024-04-24 06:01] LABS: CALCIUM 10.1 mg/dL (8.5-10.1); CARBON DIOXIDE,CO2 27.7 mmol/L (21.0-32.0); CREATININE 1.3 mg/dL (0.6-1.0); EST CRCL DRUG DOSING (CG) 38.77 mL/min; MAGNESIUM 2.4 mg/dL (1.8-2.4); POTASSIUM,K 4.1 mmol/L (3.5-5.1)
[2024-04-25 05:57] LABS: BASOPHILS ABSOLUTE AUTO 0.03 K/uL (0.00-0.20); BASOPHILS PERCENT AUTO 0.3 % (0.0-1.0); EOSINOPHILS PERCENT AUTO 0.9 % (0.0-6.0); HEMATOCRIT 42.1 % (37.0-47.0); HEMOGLOBIN 13.2 g/dL (12.0-16.0); IMMATURE GRAN ABSOLUTE AUTO 0.03 K/uL (0.00-0.05); IMMATURE GRAN PERCENT AUTO 0.3 % (0.0-0.4); LYMPHOCYTES ABSOLUTE AUTO 3.53 K/uL (1.00-4.80); LYMPHOCYTES PERCENT AUTO 33.3 % (24.0-44.0); MEAN CORPUSCULAR HEMOGLOBIN 28.7 pg (28.0-32.0); MEAN CORPUSCULAR HGB CONC 31.4 g/dL (32.0-36.0); MEAN CORPUSCULAR VOLUME 91.5 fL (83.0-99.0); MEAN PLATELET VOLUME 9.2 fL (9.4-12.3); MONOCYTES ABSOLUTE AUTO 0.73 K/uL (0.00-0.80); MONOCYTES PERCENT AUTO 6.9 % (0.0-8.0); NEUTROPHILS ABSOLUTE AUTO 6.18 K/uL (1.80-7.70); NEUTROPHILS PERCENT AUTO 58.3 % (41.0-71.0); PLATELET COUNT,PLT 347 K/uL (150-400)
[2024-04-25 06:18] LABS: ALBUMIN 2.6 g/dL (3.4-5.0); BILIRUBIN TOTAL 0.4 mg/dL (0.2-1.0); CALCIUM 10.5 mg/dL (8.5-10.1); CARBON DIOXIDE,CO2 30.3 mmol/L (21.0-32.0); CREATININE 1.2 mg/dL (0.6-1.0); MAGNESIUM 2.4 mg/dL (1.8-2.4); POTASSIUM,K 4.1 mmol/L (3.5-5.1); PROTEIN TOTAL,TP 6.6 g/dL (6.4-8.2)
[2024-04-25 06:28] LABS: A/G RATIO 0.7 (0.9-1.6)
[2024-04-25] MEDS: Acetaminophen/oxyCODONE 325-5 MG Tab PO PRN (06:34)
[2024-04-25] MEDS: Tamsulosin 0.4 MG Cap.ER PO ONE (09:55)
[2024-04-25] MEDS: Iopamidol 755 MG/ML 500 ML Multipack Bottle IVPUSH STA (10:30)
[2024-04-26] MEDS: Albuterol 0.083% 2.5 MG/3 ML Neb Soln NEB PRN (03:27)
[2024-04-26 07:35] LABS: BASOPHILS ABSOLUTE AUTO 0.04 K/uL (0.00-0.20); BASOPHILS PERCENT AUTO 0.3 % (0.0-1.0); EOSINOPHILS ABSOLUTE AUTO 0.04 K/uL (0.00-0.45); EOSINOPHILS PERCENT AUTO 0.3 % (0.0-6.0); HEMATOCRIT 47.8 % (37.0-47.0); HEMOGLOBIN 15.3 g/dL (12.0-16.0); IMMATURE GRAN ABSOLUTE AUTO 0.05 K/uL (0.00-0.05); IMMATURE GRAN PERCENT AUTO 0.3 % (0.0-0.4); LYMPHOCYTES ABSOLUTE AUTO 1.72 K/uL (1.00-4.80); LYMPHOCYTES PERCENT AUTO 11.5 % (24.0-44.0); MEAN CORPUSCULAR HEMOGLOBIN 29.1 pg (28.0-32.0); MEAN PLATELET VOLUME 9.4 fL (9.4-12.3); NEUTROPHILS ABSOLUTE AUTO 12.47 K/uL (1.80-7.70); NEUTROPHILS PERCENT AUTO 83.6 % (41.0-71.0); PLATELET COUNT,PLT 412 K/uL (150-400); RED BLOOD CELL COUNT 5.25 M/uL (4.10-5.30); WHITE BLOOD CELL COUNT,WBC 14.92 K/uL (3.9-11.3)
[2024-04-26 07:53] LABS: CALCIUM 10.7 mg/dL (8.5-10.1); CARBON DIOXIDE,CO2 26.3 mmol/L (21.0-32.0); CREATININE 1.3 mg/dL (0.6-1.0); EST CRCL DRUG DOSING (CG) 38.77 mL/min; MAGNESIUM 2.2 mg/dL (1.8-2.4); POTASSIUM,K 5.3 mmol/L (3.5-5.1)
[2024-04-26] MEDS ORDERED: Polyethylene Glycol 3350 Powder 17 GM Packet PO ONE (10:09)
[2024-04-26] MEDS: Polyethylene Glycol 3350 Powder 17 GM Packet PO ONE (13:16)
[2024-04-26] MEDS: QUEtiapine 100 MG Tab PO SCH (21:43)
[2024-04-26] MEDS ORDERED: Phenazopyridine 200 MG Tab PO PRN (21:54)
[2024-04-27 05:59] LABS: BASOPHILS ABSOLUTE AUTO 0.04 K/uL (0.00-0.20); BASOPHILS PERCENT AUTO 0.3 % (0.0-1.0); EOSINOPHILS ABSOLUTE AUTO 0.09 K/uL (0.00-0.45); EOSINOPHILS PERCENT AUTO 0.7 % (0.0-6.0); HEMOGLOBIN 12.3 g/dL (12.0-16.0); IMMATURE GRAN ABSOLUTE AUTO 0.04 K/uL (0.00-0.05); IMMATURE GRAN PERCENT AUTO 0.3 % (0.0-0.4); LYMPHOCYTES ABSOLUTE AUTO 3.71 K/uL (1.00-4.80); LYMPHOCYTES PERCENT AUTO 28.5 % (24.0-44.0); MEAN CORPUSCULAR HEMOGLOBIN 28.9 pg (28.0-32.0); MEAN CORPUSCULAR HGB CONC 32.4 g/dL (32.0-36.0); MEAN CORPUSCULAR VOLUME 89.2 fL (83.0-99.0); MEAN PLATELET VOLUME 9.3 fL (9.4-12.3); MONOCYTES ABSOLUTE AUTO 0.99 K/uL (0.00-0.80); MONOCYTES PERCENT AUTO 7.6 % (0.0-8.0); NEUTROPHILS ABSOLUTE AUTO 8.13 K/uL (1.80-7.70); NEUTROPHILS PERCENT AUTO 62.6 % (41.0-71.0); PLATELET COUNT,PLT 327 K/uL (150-400); RED BLOOD CELL COUNT 4.26 M/uL (4.10-5.30)
[2024-04-27 06:15] LABS: CALCIUM 10.7 mg/dL (8.5-10.1); CARBON DIOXIDE,CO2 31.9 mmol/L (21.0-32.0); CREATININE 1.3 mg/dL (0.6-1.0); EST CRCL DRUG DOSING (CG) 38.77 mL/min; MAGNESIUM 2.2 mg/dL (1.8-2.4); POTASSIUM,K 4.4 mmol/L (3.5-5.1)
[2024-04-27] MEDS ORDERED: Phenazopyridine 200 MG Tab PO PRN (09:00)
[2024-04-27] MEDS: FLUoxetine 20 MG Cap PO ONE (16:52)
[2024-04-27] MEDS: Polyethylene Glycol 3350 Powder 17 GM Packet PO SCH (16:52)
[2024-04-27] MEDS: Iopamidol 755 Mg/ML 100 ML Bottle IVPUSH ONE (17:50)
[2024-04-27] MEDS: Docusate Sodium 100 MG Cap PO SCH (22:09)
[2024-04-28 05:52] LABS: BASOPHILS ABSOLUTE AUTO 0.04 K/uL (0.00-0.20); BASOPHILS PERCENT AUTO 0.4 % (0.0-1.0); EOSINOPHILS ABSOLUTE AUTO 0.04 K/uL (0.00-0.45); EOSINOPHILS PERCENT AUTO 0.4 % (0.0-6.0); HEMATOCRIT 38.1 % (37.0-47.0); HEMOGLOBIN 12.4 g/dL (12.0-16.0); IMMATURE GRAN ABSOLUTE AUTO 0.02 K/uL (0.00-0.05); IMMATURE GRAN PERCENT AUTO 0.2 % (0.0-0.4); LYMPHOCYTES ABSOLUTE AUTO 3.26 K/uL (1.00-4.80); LYMPHOCYTES PERCENT AUTO 31.6 % (24.0-44.0); MEAN CORPUSCULAR HGB CONC 32.5 g/dL (32.0-36.0); MEAN CORPUSCULAR VOLUME 89.2 fL (83.0-99.0); MEAN PLATELET VOLUME 9.5 fL (9.4-12.3); MONOCYTES ABSOLUTE AUTO 0.78 K/uL (0.00-0.80); MONOCYTES PERCENT AUTO 7.6 % (0.0-8.0); NEUTROPHILS ABSOLUTE AUTO 6.18 K/uL (1.80-7.70); NEUTROPHILS PERCENT AUTO 59.8 % (41.0-71.0); PLATELET COUNT,PLT 362 K/uL (150-400); RED BLOOD CELL COUNT 4.27 M/uL (4.10-5.30); WHITE BLOOD CELL COUNT,WBC 10.32 K/uL (3.9-11.3)
[2024-04-28 06:15] LABS: CALCIUM 10.3 mg/dL (8.5-10.1); CARBON DIOXIDE,CO2 28.6 mmol/L (21.0-32.0); CREATININE 1.2 mg/dL (0.6-1.0); MAGNESIUM 2.2 mg/dL (1.8-2.4); POTASSIUM,K 3.8 mmol/L (3.5-5.1)
[2024-04-28] MEDS: FLUoxetine 20 MG Cap PO SCH (09:35)
[2024-04-28] MEDS: Magnesium Hydroxide 400 MG/5 ML Susp 30 ML Cup PO ONE (09:57)
[2024-04-28] MEDS: Docusate Sodium 100 MG Cap PO ONE (14:44)
[2024-04-28] MEDS ORDERED: FLUoxetine 20 MG Cap PO ONE (16:32)
[2024-04-29 06:11] LABS: BASOPHILS ABSOLUTE AUTO 0.03 K/uL (0.00-0.20); BASOPHILS PERCENT AUTO 0.3 % (0.0-1.0); EOSINOPHILS ABSOLUTE AUTO 0.08 K/uL (0.00-0.45); EOSINOPHILS PERCENT AUTO 0.9 % (0.0-6.0); HEMATOCRIT 37.4 % (37.0-47.0); HEMOGLOBIN 12.2 g/dL (12.0-16.0); IMMATURE GRAN ABSOLUTE AUTO 0.02 K/uL (0.00-0.05); IMMATURE GRAN PERCENT AUTO 0.2 % (0.0-0.4); LYMPHOCYTES ABSOLUTE AUTO 3.47 K/uL (1.00-4.80); LYMPHOCYTES PERCENT AUTO 37.1 % (24.0-44.0); MEAN CORPUSCULAR HEMOGLOBIN 29.5 pg (28.0-32.0); MEAN CORPUSCULAR HGB CONC 32.6 g/dL (32.0-36.0); MEAN CORPUSCULAR VOLUME 90.6 fL (83.0-99.0); MEAN PLATELET VOLUME 9.5 fL (9.4-12.3); MONOCYTES ABSOLUTE AUTO 0.67 K/uL (0.00-0.80); MONOCYTES PERCENT AUTO 7.2 % (0.0-8.0); NEUTROPHILS ABSOLUTE AUTO 5.08 K/uL (1.80-7.70); NEUTROPHILS PERCENT AUTO 54.3 % (41.0-71.0); PLATELET COUNT,PLT 342 K/uL (150-400); RED BLOOD CELL COUNT 4.13 M/uL (4.10-5.30); WHITE BLOOD CELL COUNT,WBC 9.35 K/uL (3.9-11.3)
[2024-04-29 06:33] LABS: CALCIUM 10.2 mg/dL (8.5-10.1); CARBON DIOXIDE,CO2 29.4 mmol/L (21.0-32.0); CREATININE 1.2 mg/dL (0.6-1.0); MAGNESIUM 2.2 mg/dL (1.8-2.4); POTASSIUM,K 3.7 mmol/L (3.5-5.1)
[2024-04-29] MEDS: Magnesium Hydroxide 400 MG/5 ML Susp 30 ML Cup PO ONE (12:21)
[2024-04-30 08:04] LABS: CALCIUM 10.7 mg/dL (8.5-10.1); CREATININE 1.1 mg/dL (0.6-1.0); EST CRCL DRUG DOSING (CG) 45.82 mL/min; MAGNESIUM 2.3 mg/dL (1.8-2.4); POTASSIUM,K 4.2 mmol/L (3.5-5.1)
[2024-04-30 08:06] LABS: BASOPHILS ABSOLUTE AUTO 0.04 K/uL (0.00-0.20); BASOPHILS PERCENT AUTO 0.4 % (0.0-1.0); EOSINOPHILS PERCENT AUTO 1.1 % (0.0-6.0); HEMATOCRIT 39.2 % (37.0-47.0); HEMOGLOBIN 12.6 g/dL (12.0-16.0); IMMATURE GRAN ABSOLUTE AUTO 0.02 K/uL (0.00-0.05); IMMATURE GRAN PERCENT AUTO 0.2 % (0.0-0.4); LYMPHOCYTES ABSOLUTE AUTO 2.82 K/uL (1.00-4.80); LYMPHOCYTES PERCENT AUTO 31.2 % (24.0-44.0); MEAN CORPUSCULAR HEMOGLOBIN 28.8 pg (28.0-32.0); MEAN CORPUSCULAR HGB CONC 32.1 g/dL (32.0-36.0); MEAN CORPUSCULAR VOLUME 89.5 fL (83.0-99.0); MEAN PLATELET VOLUME 9.3 fL (9.4-12.3); MONOCYTES ABSOLUTE AUTO 0.73 K/uL (0.00-0.80); MONOCYTES PERCENT AUTO 8.1 % (0.0-8.0); NEUTROPHILS ABSOLUTE AUTO 5.33 K/uL (1.80-7.70); PLATELET COUNT,PLT 378 K/uL (150-400); RED BLOOD CELL COUNT 4.38 M/uL (4.10-5.30); WHITE BLOOD CELL COUNT,WBC 9.04 K/uL (3.9-11.3)
[2024-04-30] MEDS ORDERED: Docusate Sodium 100 MG Cap PO PRN (09:48)
[2024-05-01 06:07] LABS: BASOPHILS ABSOLUTE AUTO 0.04 K/uL (0.00-0.20); BASOPHILS PERCENT AUTO 0.4 % (0.0-1.0); EOSINOPHILS ABSOLUTE AUTO 0.12 K/uL (0.00-0.45); EOSINOPHILS PERCENT AUTO 1.1 % (0.0-6.0); HEMATOCRIT 39.2 % (37.0-47.0); HEMOGLOBIN 12.5 g/dL (12.0-16.0); IMMATURE GRAN ABSOLUTE AUTO 0.02 K/uL (0.00-0.05); IMMATURE GRAN PERCENT AUTO 0.2 % (0.0-0.4); LYMPHOCYTES ABSOLUTE AUTO 3.64 K/uL (1.00-4.80); MEAN CORPUSCULAR HEMOGLOBIN 28.9 pg (28.0-32.0); MEAN CORPUSCULAR HGB CONC 31.9 g/dL (32.0-36.0); MEAN CORPUSCULAR VOLUME 90.5 fL (83.0-99.0); MEAN PLATELET VOLUME 9.4 fL (9.4-12.3); MONOCYTES ABSOLUTE AUTO 0.84 K/uL (0.00-0.80); MONOCYTES PERCENT AUTO 7.4 % (0.0-8.0); NEUTROPHILS ABSOLUTE AUTO 6.72 K/uL (1.80-7.70); NEUTROPHILS PERCENT AUTO 58.9 % (41.0-71.0); PLATELET COUNT,PLT 376 K/uL (150-400); RED BLOOD CELL COUNT 4.33 M/uL (4.10-5.30); WHITE BLOOD CELL COUNT,WBC 11.38 K/uL (3.9-11.3)
[2024-05-01 06:32] LABS: CALCIUM 10.3 mg/dL (8.5-10.1); CARBON DIOXIDE,CO2 26.6 mmol/L (21.0-32.0); CREATININE 1.2 mg/dL (0.6-1.0); MAGNESIUM 2.3 mg/dL (1.8-2.4); POTASSIUM,K 3.9 mmol/L (3.5-5.1)
[2024-05-01 12:06] LABS: HEMOGLOBIN A1C 10.3 %
[2024-05-02] MEDS: oxyCODONE 5 MG Tab PO PRN (11:30)
[2024-05-02] MEDS: Acetaminophen 325 MG Tab PO SCH (13:43)
[2024-05-03 05:50] LABS: BASOPHILS ABSOLUTE AUTO 0.05 K/uL (0.00-0.20); BASOPHILS PERCENT AUTO 0.6 % (0.0-1.0); EOSINOPHILS ABSOLUTE AUTO 0.09 K/uL (0.00-0.45); HEMATOCRIT 39.9 % (37.0-47.0); HEMOGLOBIN 12.8 g/dL (12.0-16.0); IMMATURE GRAN ABSOLUTE AUTO 0.02 K/uL (0.00-0.05); IMMATURE GRAN PERCENT AUTO 0.2 % (0.0-0.4); LYMPHOCYTES ABSOLUTE AUTO 3.57 K/uL (1.00-4.80); LYMPHOCYTES PERCENT AUTO 41.6 % (24.0-44.0); MEAN CORPUSCULAR HEMOGLOBIN 29.2 pg (28.0-32.0); MEAN CORPUSCULAR HGB CONC 32.1 g/dL (32.0-36.0); MEAN CORPUSCULAR VOLUME 91.1 fL (83.0-99.0); MEAN PLATELET VOLUME 9.2 fL (9.4-12.3); MONOCYTES ABSOLUTE AUTO 0.75 K/uL (0.00-0.80); MONOCYTES PERCENT AUTO 8.7 % (0.0-8.0); NEUTROPHILS PERCENT AUTO 47.9 % (41.0-71.0); PLATELET COUNT,PLT 372 K/uL (150-400); RED BLOOD CELL COUNT 4.38 M/uL (4.10-5.30); WHITE BLOOD CELL COUNT,WBC 8.58 K/uL (3.9-11.3)
[2024-05-03 06:15] LABS: CALCIUM 10.5 mg/dL (8.5-10.1); CARBON DIOXIDE,CO2 29.5 mmol/L (21.0-32.0); CREATININE 1.3 mg/dL (0.6-1.0); EST CRCL DRUG DOSING (CG) 38.77 mL/min; MAGNESIUM 2.3 mg/dL (1.8-2.4); PHOSPHORUS 4.6 mg/dL (2.6-4.7); POTASSIUM,K 3.5 mmol/L (3.5-5.1)
[2024-05-05 05:41] LABS: BASOPHILS ABSOLUTE AUTO 0.04 K/uL (0.00-0.20); BASOPHILS PERCENT AUTO 0.5 % (0.0-1.0); EOSINOPHILS ABSOLUTE AUTO 0.12 K/uL (0.00-0.45); EOSINOPHILS PERCENT AUTO 1.5 % (0.0-6.0); HEMATOCRIT 41.3 % (37.0-47.0); HEMOGLOBIN 12.9 g/dL (12.0-16.0); IMMATURE GRAN ABSOLUTE AUTO 0.01 K/uL (0.00-0.05); IMMATURE GRAN PERCENT AUTO 0.1 % (0.0-0.4); LYMPHOCYTES ABSOLUTE AUTO 3.33 K/uL (1.00-4.80); LYMPHOCYTES PERCENT AUTO 41.9 % (24.0-44.0); MEAN CORPUSCULAR HEMOGLOBIN 28.7 pg (28.0-32.0); MEAN CORPUSCULAR HGB CONC 31.2 g/dL (32.0-36.0); MEAN CORPUSCULAR VOLUME 91.8 fL (83.0-99.0); MEAN PLATELET VOLUME 9.2 fL (9.4-12.3); MONOCYTES ABSOLUTE AUTO 0.55 K/uL (0.00-0.80); MONOCYTES PERCENT AUTO 6.9 % (0.0-8.0); NEUTROPHILS ABSOLUTE AUTO 3.89 K/uL (1.80-7.70); NEUTROPHILS PERCENT AUTO 49.1 % (41.0-71.0); PLATELET COUNT,PLT 322 K/uL (150-400); WHITE BLOOD CELL COUNT,WBC 7.94 K/uL (3.9-11.3)
[2024-05-05 06:05] LABS: CALCIUM 10.5 mg/dL (8.5-10.1); CARBON DIOXIDE,CO2 29.9 mmol/L (21.0-32.0); CREATININE 1.3 mg/dL (0.6-1.0); EST CRCL DRUG DOSING (CG) 38.77 mL/min; POTASSIUM,K 3.6 mmol/L (3.5-5.1)
[2024-05-07] MEDS: Bisacodyl 10 MG Supp RECTAL PRN (11:21)
[2024-05-07] MEDS: rOPINIRole 0.5 MG Tab PO SCH (21:41)
[2024-05-09] MEDS: Simethicone 80 MG Tab.Chew PO PRN (10:51)
[2024-05-09] MEDS: Fluconazole 150 MG Tab PO ONE (16:54)
[2024-05-09] MEDS: Insulin Glargine,Human Rec. Analog 100 Units/ML 3 ML Pen SUBCUT SCH (21:20)
[2024-05-10] MEDS: Insulin Glargine,Human Rec. Analog 100 Units/ML 3 ML Pen SUBCUT SCH (09:19)
[2024-05-10] MEDS: Insulin Aspart 100 Units/ML 3 ML Pen SUBCUT SCH (16:45)
[2024-05-10 22:40] VITALS: PULSE 60
[2024-05-11 08:15] VITALS: BP 132/56
[2024-05-11] MEDS: Sennosides/Docusate Sodium 50-8.6 MG Tab PO SCH (08:16)
[2024-05-11] MEDS: Polyethylene Glycol 3350 Powder 17 GM Packet PO SCH (08:16)
== END 2024-05-11 09:33 | DRG 948 ==
LOC: MW.ED → MW.MS 11:03 → MW.ED 13:00 → MW.MS 14:20 → UNDOADMIN 14:20 → MW.MS 04-26 22:55 → UNDODISIN 05-11 09:33
PROVIDERS: ADMIT Family Medicine; ATTEND Family Medicine
DX: R53.1 Weakness (principal); S32.82XA Multiple fractures of pelvis without disruption of pelvic ring, initial encounter for closed fracture; F32.0 Major depressive disorder, single episode, mild; E11.9 Type 2 diabetes mellitus without complications; B37.9 Candidiasis, unspecified; E03.9 Hypothyroidism, unspecified; I10 Essential (primary) hypertension; M81.0 Age-related osteoporosis without current pathological fracture; E78.00 Pure hypercholesterolemia, unspecified; K58.9 Irritable bowel syndrome, unspecified; Z79.890 Hormone replacement therapy; K21.9 Gastro-esophageal reflux disease without esophagitis; W19.XXXA Unspecified fall, initial encounter; E11.42 Type 2 diabetes mellitus with diabetic polyneuropathy; E86.0 Dehydration; R29.6 Repeated falls; R62.7 Adult failure to thrive; F41.8 Other specified anxiety disorders; E11.65 Type 2 diabetes mellitus with hyperglycemia; F20.9 Schizophrenia, unspecified; F43.10 Post-traumatic stress disorder, unspecified; F29 Unspecified psychosis not due to a substance or known physiological condition; K56.41 Fecal impaction; L89.300 Pressure ulcer of unspecified buttock, unstageable; G25.81 Restless legs syndrome; R33.9 Retention of urine, unspecified; N31.9 Neuromuscular dysfunction of bladder, unspecified; Z88.5 Allergy status to narcotic agent; Z88.2 Allergy status to sulfonamides; Z88.8 Allergy status to other drugs, medicaments and biological substances; Z87.440 Personal history of urinary (tract) infections; Z79.4 Long term (current) use of insulin; Z90.49 Acquired absence of other specified parts of digestive tract; Z90.89 Acquired absence of other organs; Z68.31 Body mass index [BMI] 31.0-31.9, adult; Z98.890 Other specified postprocedural states; Z79.899 Other long term (current) drug therapy; Z79.1 Long term (current) use of non-steroidal anti-inflammatories (NSAID)
CPT/HCPCS: 36415; 51701; 51702; 51798; 73502-26-RT; 73502-RT; 74018; 74018-26; 74177; 74177-26; 80048; 80053; 80178; 81001; 81003; 82947; 83036; 83735; 84100; 85025; 87086; 87088; 87186; 97110-GO; 97110-GP; 97161-GP; 97165-GO; 97530-GP; 99223; 99231; 99232; 99238; 99284; 99285; A9270-GY; J0696; J1644; J1815-GY; J2270; J2405; J7030; Q9967